=== PATIENT | female | born 1955 | race Caucasian/White ===

== ENCOUNTER 2023-12-29 06:13 | Inpatient (IN) | payer BC, MEDICARE, SELFPAY ==
[2023-12-24 09:22] VITALS: BMI 20.1
[2023-12-24 10:19] LABS: % Basophils 0.5 % (0-2); % Eosinophils 1.2 % (0-6); % Immature Granulocytes 0.2 % (0-0.5); % Lymphocytes 32.7 % (20.5-51.1); % Monocytes 6.5 % (1.7-9.3); % Neutrophils 58.9 % (42.2-75.2); Absolute Eosinophils 0.1 10^3/uL (0-0.7); Absolute Lymphocytes 1.9 10^3/uL (1.2-3.4); Absolute Monocytes 0.4 10^3/uL (0.1-0.6); Absolute Neutrophils 3.4 10^3/uL (1.4-6.5); Hematocrit 37.9 % (37.0-47.0); Hemoglobin 13.4 g/dL (12.0-16.0); Mean Corp Hgb Conc. 35.4 g/dL (33.0-37.0); Mean Corpuscular Hgb 31.8 pg (27.0-31.0); Mean Corpuscular Volume 89.8 fL (81.0-99.0); Mean Platelet Volume 10.2 fL (7.4-10.4); Nucleated Red Blood Cells % 0 %; Platelet Count 207 10^3/uL (130-400); Red Blood Cell Count 4.22 10^6/uL (4.20-5.40); Red Cell Dist. Width 13.2 % (11.5-14.5); White Blood Cell Count 5.7 10^3/uL (4.8-10.8)
[2023-12-24 10:29] LABS: PT 13.2 Sec (11.4-14.6)
[2023-12-24 10:45] LABS: Blood Urea Nitrogen 15 mg/dl (7-17); Calcium 9.6 mg/dl (8.4-10.2); Carbon Dioxide 27 mmol/L (22-30); Chloride 99 mmol/L (98-107); Estimated Creatinine Clearance 64 ml/min; Glucose 100 mg/dl (70-99); Potassium 3.5 mmol/L (3.5-5.1); Sodium 136 mmol/L (135-145); eGFR > 60.00
[2023-12-29] VITALS (9 sets, daily range): BP systolic 103–124; BP diastolic 59–75; BMI 20.5
[2023-12-29] MEDS: BACTROBAN NASAL 1 GRAM NASAL (06:54)
[2023-12-29] MEDS: PERIDEX 0.12% ORAL RINSE 15 ML PO (06:54)
[2023-12-29] MEDS: NSS 500 IV (06:54)
--- NOTE | 2023-12-29 07:05 | W.PV.INTER ---
VPI Note
Pre Admission Note
Functional Status: Full
Ambulation: Ambulate Independently
Pre Op Medications
Pre Op ASA: Yes
Pre Op Statin: Yes
Pre Op HEIDI Inhibitor/ARB: No
Pre Op P2y12 Antagonist: None
Pre Op Beta Blockers: No
Pre Op Chronic Anticoagulant: None
Pre Op Cilostazol: No
Post Op Medications
Post Op ASA: Yes
Post Op Statin: Yes
Post Op HEIDI Inhibitor/ARB: No
Post Op P2y12 Antagonist: None
Post Op Beta Blockers: No
Post Op Chronic Anticoagulant: None
Post Op Cilostazol: No
Modified Opal
Pre Op: 0
Post Op: 0
--- NOTE | 2023-12-29 07:10 | W.SUR.PREOP ---
Pre-Operative Surgical Note
-
I have examined this patient prior to the performance of the scheduled procedure.
The patient's condition is unchanged from the time of the current History and
Physical and the patient is able to undergo the scheduled procedure.
[2023-12-29 08:31] LABS: ACT-LR - POC 216 Seconds (116-155)
[2023-12-29 09:15] LABS: ACT-LR - POC 253 Seconds (116-155)
--- NOTE | 2023-12-29 10:12 | W.IMMPOSTOP ---
Surgical Immed Post Op Note
-
Primary Surgeon: Martin Jay III, MD
Assisting Surgeon: Alexander Brewer MD
Pre-op Diagnosis: L Carotid Artery Stenosis
Post-op Diagnosis: L Carotid Artery Stenosis s/p endarterectomy
Procedure Performed: L Carotid Endarterectomy with Bovine Patch Angioplasty
Anesthesia Type: General + Neuromonitoring
Specimen / Cultures: Atherosclerotic Plaque
Estimated Blood Loss: 50cc
Complications: NA
Operative Findings:
Patient's neck was prepped in usual fashion. Pre-operatively, ultrasound was used to identify the course of the common carotid artery and its bifurcation point. A 8cm incision was made along the anterior border of the sternocleidomastoid muscle.
Electrocautery was used to dissect through skin, subcutaneous tissue, and platysma muscle. Sharp dissection was used to carry incision down to level of carotid artery. Control of the common, external, internal carotids, and superior thyroid artery
was accomplished using vessel loops. 100u/kg heparin was administered and arteriotomy was performed extending from common carotid through the proximal internal carotid. The lumen was debrided of atherosclerotic plaque. A strip of bovine perciardial
patch was used as patch angioplasty to close the arteriotomy with a running 7-0 polypropylene suture. Loops were individually removed to check for backbleeding through the angioplasty site. Doppler ultrasound was used to confirm excellent flow
through the carotids. Protamine was administered, and gel-foam and thrombin were packed overlying the patch to promote hemostasis. Next, the overlying fascia, platysma, and skin were closed using running 2-0, 3-0, and 4-0 suture respectively. Skin
glue was placed for additional support. Upon awakening, patient was moving all extremities, following commands, and displayed no concern for vagal or hypoglossal nerve injury.
[2023-12-29 10:33] LABS: Hematocrit 29.6 % (37.0-47.0); Hemoglobin 10.2 g/dL (12.0-16.0); Mean Corp Hgb Conc. 34.5 g/dL (33.0-37.0); Mean Platelet Volume 10.1 fL (7.4-10.4); Platelet Count 141 10^3/uL (130-400); Red Blood Cell Count 3.29 10^6/uL (4.20-5.40); Red Cell Dist. Width 13.2 % (11.5-14.5); White Blood Cell Count 4.3 10^3/uL (4.8-10.8)
[2023-12-29 10:43] LABS: INR 1.22; PT 15.2 Sec (11.4-14.6)
[2023-12-29 10:44] LABS: APTT 27.7 Sec (23.4-35.0)
[2023-12-29 10:45] LABS: Blood Urea Nitrogen 10 mg/dl (7-17); Calcium 7.9 mg/dl (8.4-10.2); Carbon Dioxide 27 mmol/L (22-30); Chloride 109 mmol/L (98-107); Estimated Creatinine Clearance 75 ml/min; Glucose 116 mg/dl (70-99); Potassium 3.1 mmol/L (3.5-5.1); Sodium 139 mmol/L (135-145); eGFR > 60.00
[2023-12-29] MEDS: NSS 1000 IV ×2 (10:59→20:17)
[2023-12-29] MEDS: SUBLIMAZE 50 MCG IV (11:04)
--- NOTE | 2023-12-29 11:20 | CON.INTV ---
Consultation
Consultation Request
Date/Time Consultation Requested: 12/29
Date/Time Consultation Performed: 12/29
Reason for Consultation: critical care
Medical History
-
History of Present Illness:
History obtained from the patient, reviewing outpatient records. 68-year-old female with history of hypertension, breast cancer, significant smoking history quit 2004 with recent fall 3 weeks ago. She also has a history of mini strokes. She did
not seek medical attention at that time. She has had prior imaging which showed left carotid stenosis per MRI and Doppler. She does not see a neurologist. She is on aspirin therapy. Presently she is complaining of some left neck discomfort and
some mild shortness of breath. On further questioning she does get short of breath at baseline, describes orthopnea. She has to sleep with the head of the bed elevated. She has chronic colitis, follows GI. Denies any blood in urine or stool,
changes in weight, fevers. Review of systems otherwise negative. We are asked to help from critical care standpoint status post left carotid endarterectomy 12/29/2023
.
PMH: Hyperlipidemia, lymphocytic colitis on chronic steroid in the past, rhinitis, breast cancer 2012 right lumpectomy/radiation, suspected COPD
Past Medical History
Past Medical History: None (See above)
Past Surgical History: None (See above)
Social History
Tobacco: Former Smoker ([id number], quit 2004)
Alcohol: Occasional
Drug: None
Living: With Family (Daughter lives with patient)
Employment: Retired
Family History
Family History: Other (Sister from lung disease in fourth decade, details unclear. Mother from heart attack sixth decade.)
Allergies / Home Medications
Allergies
Allergy/AdvReac Type Severity Reaction Status Date / Time
No Known Allergies Allergy Verified 12/23/23 12:10
Home Medications
Medication Instructions Recorded Confirmed Last Taken Type
aspirin 81 mg tablet,delayed 81 mg PO DAILY 05/16/23 12/29/23 12/29/23 05:00 History
release
rosuvastatin 20 mg tablet 20 mg PO HS 05/16/23 12/29/23 12/28/23 22:00 History
budesonide 3 mg 3 mg PO DAILY 12/23/23 12/29/23 12/28/23 07:30 History
capsule,delayed,extended release
gabapentin 300 mg capsule 300 mg PO BID 12/23/23 12/29/23 12/28/23 22:00 History
sertraline 100 mg tablet 100 mg PO DAILY 12/23/23 12/29/23 12/28/23 22:00 History
Review of Systems
-
All other systems: Negative unless noted
Vitals / Labs / Diagnostic Testing
Vital Signs
Temp Pulse Resp BP Pulse Ox
98 F 58 11 110/59 95
12/29/23 11:00 12/29/23 11:15 12/29/23 11:15 12/29/23 10:45 12/29/23 10:45
Lab Data
12/29/23 10:15
12/29/23 10:15
Laboratory Results
12/29/23
10:15
PT 15.2 H
INR 1.22
APTT 27.7
Diagnostic Testing:
Physical Exam
-
HEENT: Normocephalic, Anicteric, Other (Left carotid incision intact) and Other (Left upper extremity A-line intact)
Cardiovascular: S1/S2, Regular Rhythm, Murmur (n), Rub (n), Peripheral Edema (n) and Calf Tenderness (n)
Respiratory: Wheeze (n), Rales (n), Rhonchi (n) and Non-Labored Respirations
GI: Soft, Non Distended and Tender (Mild, no rebound or guarding)
Neurology: Awake, Alert and No Motor Deficits (Moves all extremities)
Skin: Good Color and Other (No clubbing, cyanosis)
General: Comfortable (Conversant)
Assessment
-
68-year-old female with history of left carotid stenosis per imaging, breast cancer, hyperlipidemia, significant tobacco history, status post left carotid endarterectomy 12/29/2023
S/p LCEA 12/29/2023
Chronic dizziness
Fall November 2023, did not seek medical attention
Subjective dyspnea, chronic
Negative stress test
Leukopenia/anemia
Hypokalemia
Conditions present prior to admission
Hypertension/hyperlipidemia
History of multiple mini strokes
Per patient, none for 4 years
Lymphocytic colitis
On steroid therapy in the past, follows with GI
History of breast cancer right lumpectomy 2012
s/p XRT
GERD
Suspected COPD
Borderline restriction, isolated mild gas exchange defect
TLC 80%, DLCO 60%
Right upper lobe nodule, 5.5 mm, per CTA 02/18/23
Not commented on report
[id number] history of smoking, quit 2004
Family history of lung disease (sister in fourth decade, details unclear)
Plan/recommendations
At this time, patient appears to be comfortable
She does describe chronic shortness of breath at baseline, orthopnea which appears to be at baseline
She had a cardiology evaluation, stress echocardiogram in 2012 which was unremarkable
Chest x-ray suggest hyperinflation per my review
CT chest from 2022 reviewed by myself reveals no obvious emphysema. There is a right upper lobe nodule per my review, 5.5 mm, not commented on report
Moving forward
Continue with management per vascular surgery
Chest exam is clear, chest x-ray normal
Preoperative EKG unremarkable, await postoperative EKG
Potassium noted, replete
Follow blood pressures, A-line in place
Pressors as needed
Continue IV fluids postoperatively
DVT prophylaxis: Subcutaneous heparin
GI prophylaxis: Remains on Protonix
Patient with history of breast cancer and significant smoking history
Right upper lobe nodule per my review CT chest 2022 noted
Would recommend follow-up CT chest as outpatient
Would recommend pulmonary follow-up as outpatient
Information left in chart
Reviewed with critical care nursing
Will follow
TCCT 31 min
[2023-12-29 12:01] LABS: Magnesium 1.6 mg/dl (1.6-2.3)
[2023-12-29] MEDS: KCL 270 MEQ IV (12:01)
[2023-12-29] MEDS: ROXICODONE 5 MG PO ×2 (12:04→16:36)
--- NOTE | 2023-12-29 12:21 | PTCARENOTE ---
Received pt into Rm [id number] from PACU at 1115. Pt awake and answering questions appropriately at time of arrival. Lt Neck incision noted- surgical adhesive present, well approximated and w/o edema or ecchymosis noted. Ice pack in place to incision. Pt
Ox3, smile symmetrical, tongue midline, Melt Supervisor/leg strength +5 equally and bilaterally. IVF of NS at 80ml/hr infusing. Lt radial Keila present- leveled and zero-balanced, wave form WNL. Pt taking sips of water after passing swallow screen. Admission
questions completed. Physical assessment as documented. Orientation provided to pt re: surroundings/use of call perez. Plan of care discussed w/ pt and all questions answered. Comfort care provided. Dtr to bedside to visit w/ pt.
[2023-12-29] MEDS: MORPHINE SULFATE 2 MG IV ×2 (15:18→18:14)
--- NOTE | 2023-12-29 15:23 | OR.RPT ---
Operative Report
Operative Report
Date of Operation: 12/29/2023
Pre Op Diagnosis: High-grade calcified left carotid stenosis, asymptomatic
Post Op Diagnosis: High-grade calcified left carotid stenosis, asymptomatic
Procedure: LEFT carotid endarterectomy with patch angioplasty using bovine pericardium
Surgeon: Martin Jay III, MD
Secretary Of Police: Alexander Brewer MD PGY-1
Anesthesia: General
Complications: 20 cc
History and Indications for Procedure: 68-year-old female with asymptomatic high-grade stenosis involving the left carotid artery
Procedure in Detail: Emma Lemos was correctly identified and placed supine on the operating table. After adequate induction of anesthesia the left neck was positioned, prepped and draped in the usual sterile fashion. Preoperative antibiotics
were administered. A time out procedure was performed with the nursing and anesthesia staff confirming the patients identity as well as the nature and laterality of the procedure.
The carotid bifurcation was marked with ultrasound at the beginning of the case. The incision was planned accordingly. An incision was made along the anterior border of the left sternocleidomastoid muscle. Electrocautery was used to divide the
subcutaneous tissue and platysma. The carotid sheath was entered with sharp dissection. The internal jugular vein was retracted laterally. The vagus nerve was identified and protected throughout the case. The common carotid artery was identified at
the base of this incision and carefully encircled with a vessel loop. The patient was systemically heparinized. The dissection was continued distally towards the carotid bifurcation. The facial vein was skeletonized, ligated and divided between ties
and clips. The proximal external carotid artery was encircled with a vessel loop along with the superior thyroid artery branch. The distal internal carotid artery was encircled with a vessel loop at a soft spot on the artery beyond the plaque.
The internal vessel loop was secured followed by the common and external. An arteriotomy was made on the distal common carotid artery with an 11-blade. This was extended proximally and distally with Garzon scissors. The arteriotomy was extended
distally through the plaque to an area of normal appearing internal carotid artery. The distal vessel loop was replaced with a short tip hockey-stick type vascular clamp. An endarterectomy was performed with a Cantril elevator in the standard
fashion. The proximal extent of the plaque was transected with scissors. The distal end of the plaque in the internal carotid artery was feathered. There was a posterior intimal flap that was tacked down with 3 interrupted 7-0 Prolene sutures
evenly spaced along the posterior wall. The plaque extending into the external carotid artery was everted. Once the plaque was fully removed the endarterectomy plane was irrigated with heparinized saline and any loose fronds of tissue were removed.
A pre-cut piece of bovine pericardium was sewn in place using a running 6-0 Prolene suture. Prior to the completion of the patch the common carotid was allowed to forward bleed and the external was allowed to back bleed. The area under the patch was
irrigated with heparinized saline to remove any potential thrombus or debris. The anastomosis was completed.
The external vessel loop was released first, followed by the common and then the internal. There was an excellent pulse in the distal internal carotid artery. An excellent quality Doppler signal in the distal internal carotid artery was also
confirmed. The patch suture line was closely inspected for hemostasis and was achieved. Protamine was administered. Hemostasis was achieved in the wound bed. The wound was irrigated with saline solution.
The wound was then closed in layers. Sterile dressings were applied. The patient awoke from anesthesia with no immediate neuro deficits and was taken to the PACU in stable condition.
Attestation: I was present and responsible for the entire procedure
Signed:
Martin Jay III, MD
[facility]
[phone] (cell)
--- NOTE | 2023-12-29 16:00 | PTCARENOTE ---
Pt continues to rest quietly in bed, visiting w/ daughter. No neuro changes noted. Remains on RA w/ POx 96%. Voiding using bedpan. Tolerating PO- diet advanced. Ice pack q2hr and prn to Lt neck incision. Incision w/o change. Rx for reported neck
pain per MAR
[2023-12-29] MEDS: HEPARIN 5000 UNITS SC (16:36)
--- NOTE | 2023-12-29 18:40 | PTCARENOTE ---
Pt's brother visiting at bedside. Pt c/o Lt neck discomfort. MAP in low 90's. Medicated w/ Morphine per JAN. Will monitor MAP.
[2023-12-29] MEDS: CARDENE 200 IV (19:32)
--- NOTE | 2023-12-29 21:00 | PTCARENOTE ---
rec`d pt at 1900, resting in bed. talking with family. pt AAOx3. pupils 3mm. 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 neuro checks continued. SR on monitor. MAP touching low 100s at shift change. Cardene started to maintain map between 70-90. Left R a line. Room air,
diminished lung sounds. Pt uses bedpan. Left neck with SX site with sx adhesive. Pt uses ice pack for pain. safe environment maintained. call perez in reach.
[2023-12-29] MEDS: NEO-SYNEPHRINE 250 IV (21:13)
--- NOTE | 2023-12-29 21:37 | PTCARENOTE ---
cardene off for quite some time. Pt falling asleep, now abelardo started to maintain map 70-90. 2L NC started... sats dipping mid 80s as pt falls asleep.
[2023-12-30] VITALS (10 sets, daily range): BP systolic 99–142; BP diastolic 58–83; BMI 20.7; BMI 20.5
[2023-12-30] MEDS: HEPARIN 5000 UNITS SC ×2 (00:05→07:36)
--- NOTE | 2023-12-30 00:33 | PTCARENOTE ---
pt reassessed. no changes in pt assessment. abelardo titrated per protocol. pt used bedpan 2x...urinated.
[2023-12-30] MEDS: MORPHINE SULFATE 2 MG IV (00:50)
--- NOTE | 2023-12-30 04:00 | PTCARENOTE ---
pt reassessed. no changes in pt assessment.
--- NOTE | 2023-12-30 04:43 | DOWNTIME ---
There was a [employer] Downtime on 12/30/2023 from 0111 to 12/30/2023 at 0405. Downtime documentation of patient's care, including medication administrations, has been reconciled in the electronic record per guidelines. Refer to the
patient's paper chart under the miscellaneous tab to see printed paper medication records and downtime forms.
[2023-12-30 04:59] LABS: Hematocrit 30.4 % (37.0-47.0); Hemoglobin 10.5 g/dL (12.0-16.0); Mean Corp Hgb Conc. 34.5 g/dL (33.0-37.0); Mean Corpuscular Volume 92.7 fL (81.0-99.0); Mean Platelet Volume 10.7 fL (7.4-10.4); Platelet Count 173 10^3/uL (130-400); Red Blood Cell Count 3.28 10^6/uL (4.20-5.40); Red Cell Dist. Width 13.5 % (11.5-14.5); White Blood Cell Count 10.3 10^3/uL (4.8-10.8)
[2023-12-30 05:07] LABS: INR 1.19; PT 14.9 Sec (11.4-14.6)
[2023-12-30 05:08] LABS: APTT 29.4 Sec (23.4-35.0)
[2023-12-30 05:30] LABS: Blood Urea Nitrogen 8 mg/dl (7-17); Calcium 8.7 mg/dl (8.4-10.2); Carbon Dioxide 29 mmol/L (22-30); Chloride 104 mmol/L (98-107); Estimated Creatinine Clearance 76 ml/min; Glucose 115 mg/dl (70-99); Potassium 3.9 mmol/L (3.5-5.1); Sodium 139 mmol/L (135-145); eGFR > 60.00
[2023-12-30] MEDS: MAGNESIUM SULFATE 102 GRAMS IV (07:15)
[2023-12-30] MEDS: PROTONIX IV 40 MG IV (07:36)
[2023-12-30] MEDS: NSS (PRESERVATIVE FREE) 10 ML IV (07:36)
[2023-12-30] MEDS: ROXICODONE 5 MG PO (07:37)
--- NOTE | 2023-12-30 07:49 | W.PN.INTV ---
Today's Communication / Plan
Recommendations
Out of bed, ambulate
Possible discharge later today
Reviewed chronic pulmonary symptoms
Would benefit from pulmonary follow-up as outpatient. Information left in chart
Assessment
-
68-year-old female with history of left carotid stenosis per imaging, breast cancer, hyperlipidemia, significant tobacco history, status post left carotid endarterectomy 12/29/2023
S/p LCEA 12/29/2023
Chronic dizziness
FallNovember 2023, did not seek medical attention
Subjective dyspnea, chronic
Negative stress test
Leukopenia/anemia
Hypokalemia
Conditions present prior to admission
Hypertension/hyperlipidemia
History of multiple mini strokes
Per patient, none for 4 years
Lymphocytic colitis
On steroid therapy in the past, follows with GI
History of breast cancer right lumpectomy 2012
s/p XRT
GERD
Suspected COPD
Borderline restriction, isolated mild gas exchange defect
TLC 80%, DLCO 60%
Right upper lobe nodule, 5.5 mm, per CTA 02/18/23
Not commented on report
[id number]-[id number] history of smoking, quit 2004
Family history of lung disease (sister in fourth decade, details unclear)
Plan/recommendations
At this time, patient appears to be comfortable
Required Cardene and pressors overnight, currently off pressors
Neuroexam nonfocal
A-line has been discontinued
Mild incisional discomfort noted
Potassium improved
Moving forward
Continue with management per vascular surgery
Out of bed, ambulate
Aspirin, statin therapy
Possible discharge later today
Of note
She does describe chronic shortness of breath at baseline, orthopnea which appears to be at baseline
She had a cardiology evaluation, stress echocardiogram in 2012 which was unremarkable
Chest x-ray suggest hyperinflation per my review
CT chest from 2022 reviewed by myself reveals no obvious emphysema. There is a right upper lobe nodule per my review, 5.5 mm, not commented on report
Nocturnal hypoxia noted despite being on 2 L
Discussed possibility of underlying sleep disordered breathing. Patient describes many symptoms worrisome for sleep apnea
Recommend outpatient pulmonary follow-up
Patient with history of breast cancer and significant smoking history
Right upper lobe nodule per my review CT chest 2022 noted
Would recommend follow-up CT chest as outpatient
Would recommend pulmonary follow-up as outpatient
Information left in chart
Disposition efforts noted
Subjective Dataa
Subjective Data
Date of Service:
Date of Service: December 30, 2023
Subjective:
Patient currently sitting in the chair. Required intermittent Cardene and norepinephrine overnight for blood pressure issues. Complaining of left neck incision. Has chronic abdominal discomfort, denies nausea, chest pain. She has chronic
shortness of breath at baseline. Nocturnal desaturation noted
Objective Data
Data Reviewed
Vital Signs / I&O / Oxygen:
Vital Signs
Temp Pulse Resp BP Pulse Ox
97.7 F 49 15 109/83 99
12/30/23 07:02 12/30/23 05:30 12/30/23 05:30 12/30/23 04:00 12/30/23 05:30
Intake and Output
12/29/23 12/30/23 12/31/23
06:59 06:59 06:59
Intake Total 2190.5 / 2376.5 186 / 186
Output Total 1800 / 1800
Balance 390.5 / 576.5 186 / 186
SaO2 99
Nasal Cannula flow liters per 2
minute
Physical Exam
General: Comfortable and Other (Left neck incision intact)
HEENT: Normocephalic and Anicteric
Cardiovascular: S1-S2, Regular Rhythm, Murmur (n) and Rub (n)
Respiratory: Wheeze (n), Crackles (n), Rhonchi (n), Non-Labored Respirations and Other (Bronchial)
GI: Soft, Non Distended and Non Tender
Neurology: Awake, Alert and No Motor Deficits (Nonfocal neuroexam)
Skin: Good Color (n), Cyanosis (n) and Jaundice (n)
Labs/Micro/Reports
Lab Data
12/30/23 04:35
12/30/23 04:35
Laboratory Results
12/29/23 12/30/23
10:15 04:34
PT 15.2 H 14.9 H
INR 1.22 1.19
APTT 27.7 29.4
--- NOTE | 2023-12-30 07:58 | PTCARENOTE ---
Assumed care of pt at 0715 following shift report. Pt awake and resting quietly in bed. On RA w/ POx 96%. No SOB. Incision to Lt neck well approximated, surgical adhesive intact. No edema or ecchymosis noted. Pt using Ice pack prn for discomfort.
Neuro intact and unchanged my previous assessment findings. MAEW independently in bed. Neosynephrine gtt infusing at 20mcg/min at time assumed care of pt- turned off at 0730 as pt's MAPS in 80's. Will continue to monitor BP. Pt reports 06/18 neck
discomfort- medicated w/ Oxycodone as recorded in JAN. Call ana w/in pt reach and safe environment maintained.
--- NOTE | 2023-12-30 08:00 | W.PN.VS ---
Addendum entered and electronically signed by Martin Jay III, MD 12/30/23 13:40:
This patient was seen and examined with MARSHAL Meng. I agree with the history and physical exam as well as the assessment and plan.
Signed:
Martin Jay III, MD
[facility]
[phone] (tsba)
Original Note:
Today's Communication / Plan
-
Patient seen and examined at bedside with Dr. Martin Jay III, below plan reviewed with attending.
Assessment/Plan
-
Assessment: 68-year-old female POD #1 left carotid endarterectomy for carotid stenosis
Plan:
Discontinue arterial line
OOB with progression of ambulation as tolerated
Discontinue IV fluids
Continue aspirin and statin therapy
If patient continues to progress well and tolerates ambulation likely discharge later this afternoon
Subjective Data
-
Date of Service: December 30, 2023
Patient seen and examined at bedside, offers no complaints. Patient denies nausea, vomiting, fever, chills, or any neurological deficit. Reports adequate postoperative pain management.
Objective Data
-
Vital Signs
Temp Pulse Resp BP Pulse Ox
97.7 F 59 13 109/83 96
12/30/23 07:02 12/30/23 07:45 12/30/23 07:45 12/30/23 04:00 12/30/23 07:48
Intake and Output
12/29/23 12/30/23 12/31/23
06:59 06:59 06:59
Intake Total 2190.5 / 2376.5 186 / 186
Output Total 1800 / 1800
Balance 390.5 / 576.5 186 / 186
Intake:
Oral fluids 480 / 480
IV fluids (Total) 1710.5 / 1796.5 86 / 86
JEF 78 / 84 6 / 6
NSS 1620 / 1700 80 / 80
cardene 12.5 / 12.5
IV piggybacks 100 / 100
Output:
Urine, Voided 1800 / 1800
Other:
Number of approximated LARGE 1
amounts of urine
Lab Results
12/30/23 04:35
12/30/23 04:35
Calcium 8.7 mg/dl (8.4-10.2) 12/30/23 04:35
Magnesium 1.6 mg/dl (1.6-2.3) 12/29/23 10:15
Physical Exam
-
AAOx3, NAD
Tongue midline, face symmetrical, left neck incision CDI no evidence of hematoma or edema
No tachycardia
No dyspnea on room air
Moves bilateral upper extremities and lower extremities to command and spontaneously with equal strength
--- NOTE | 2023-12-30 08:55 | PTCARENOTE ---
Dr Jay in to see pt. Orders received. Lt radial Keila removed and pressure held at site until hemostasis achieved. Dressing applied to site. IVF stopped. Pt finishing eating her breakfast and then plans to get OOB.
[2023-12-30 09:34] LABS: Hepatitis C Antibody Negative (Negative)
--- NOTE | 2023-12-30 09:37 | PN.CDI ---
CDI
- -
CDI:
Physician Documentation Request
Admit Date: 12/29/23 06:13
Dear Adelina Hurt,
12/29 patient underwent L Carotid Endarterectomy with Bovine Patch Angioplasty.
H&H resulted as follows:
Laboratory Tests
12/24/23 12/29/23 12/30/23
09:54 10:15 04:35
Hgb 13.4 10.2 L D 10.5 L
Hct 37.9 29.6 L 30.4 L
Based on the above, could you provide a diagnosis that supports the above lab abnormalities and additional evaluation/ monitoring:
Acute blood loss anemia
Anemia- other - please specify
Abnormal lab values clinically insignificant
Other
Use of terms such as suspected, likely, concern for, or probable (associated with a specific diagnosis that is being evaluated, monitored, or treated as if it exists) are acceptable and can be coded in the inpatient setting, when documented at the
time of discharge.
Thank you,
Yanira Leung RN, BSN
CDI Specialist
tiger text
Please use your independent medical judgment in providing your response.
--- NOTE | 2023-12-30 10:45 | PTCARENOTE ---
Pt ambulated to BR w/ supervision- initial c/o 'feel a little dizzy' when first standing, improved w/ time. Pt's gait steady. AM Hygiene completed independently and then pt supervised to chair. Remains sitting OOB in chair, visiting with brother.
Using ice pack to Lt neck prn. Non changes noted from previous assessment findings or new complaints received.
[2023-12-30] MEDS: NEURONTIN 300 MG PO (11:33)
--- NOTE | 2023-12-30 12:24 | PTCARENOTE ---
Pt ambulated in queen w/ use of walker as safety precaution. Gait steady. Tolerated well - reports dizziness is 'better'.
--- NOTE | 2023-12-30 14:03 | CM ---
CM met with pt and her brother/Alex bedside
Pt resides with her dtr/Ondina in a 2SH with 2 SILAS/railing
Pt has 1st floor set up
Pt is independent with her ADLs
She has a SPC for use as needed
PCP- Martin Bedolla
Rx- [facility]
Pt does not anticipate any needs on dc
Discharge Disposition- home, no needs- brother will transport
[2023-12-30] MEDS: PREVNAR 20 0.5 ML IM (14:18)
--- NOTE | 2023-12-30 14:54 | PTCARENOTE ---
Pt has continued to rest quietly, visiting with brother. No new complaints or changes noted. Discharge order noted. IV access d/c'ed, sofa cover inspector removed. Discharge instructions reviewed w/ pt. Pt verbalized understanding and provided copy. Pt
in possession of personal belongings. Transported via WC to hospital exit for pt's brother to provide transportation home.
--- NOTE | 2023-12-30 16:04 | W.DS.TRANS ---
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
-
Discharge Instructions:
Discharge Diagnosis/Procedures Left carotid endarterectomy
Diet As tolerated
Activity No strenuous activity
Driving Restrictions Not until seen by your Dr
Bathing Restrictions OK to Shower
Instructions:
Stand-Alone Forms: DC Instr - Vascular OR
Changes to Home Medications: No
Discharge Medications:
DC Medications w/original date entered in [employer]
aspirin 81 mg tablet,delayed release 81 mg PO DAILY Blood Clot Prevention/Tx 05/16/23
rosuvastatin 20 mg tablet 20 mg PO HS High Cholesterol 05/16/23
budesonide 3 mg capsule,delayed,extended release 3 mg PO .TAPER Anti-Inflammatory 12/23/23
gabapentin 300 mg capsule 300 mg PO BID Pain 12/23/23
sertraline 100 mg tablet 100 mg PO DAILY Mental Health/Anxiety 12/23/23
Home Medication Changes
Pending Results: No
--- NOTE | 2023-12-30 16:04 | W.DCSUMMARY ---
Discharge Summary
Discharge Data
Date of Admission: 12/29/23
Date of Discharge: 12/30/23
-
Pending Results: No
Hospital Course
Attending: Misty
Consultants: Pulmonary medicine
Allergies: NKDA
Procedure with date: LEFT carotid endarterectomy with patch angioplasty using bovine pericardium on 12/29/2023
History of present illness: The patient is an 68 -year-old female with multiple medical conditions including: carotid stenosis, breast cancer, and COPD. Patient presented on 12/29/2023 for scheduled procedure with Dr. Jay. Patient presented at
baseline health with no reports of recent illness or trauma.
Hospital Course: Briefly, the patient underwent scheduled carotid endarterectomy without complications, and recovered in PACU. Following recovery phase one and two patient was transferred to intensive care unit per protocol for continued hemodynamic
monitoring. General Office Assistant consulted to aid in medical management from a critical care perspective. Patient did require Bebeto-Synephrine infusion to keep blood pressure within tight parameters postoperatively. POD #1 (12/30/23) Patient neurologically
intact, face symmetrical, and tolerating PO diet. Surgical incision clean, dry, and intact with suture line well approximated and soft. No evidence of hematoma. Bebeto-Synephrine infusion titrated off. Arterial line and IV fluids discontinued. Patient
able to ambulate without difficulty or incident. Patient stable for discharge to home.
Prescriptions and follow up appointment are included in the DC summary automated teller manager note. All instructions were given to the patient in both written and verbal form and the patient expressed understanding.
Discharge Plan
-
Patient Disposition: Home (Routine Discharge)
Discharge Diagnosis/Procedures: Left carotid endarterectomy
Condition: Good
Diet: As tolerated
Activity: No strenuous activity
Driving Restrictions: Not until seen by your Dr
Bathing Restrictions: OK to Shower
Activity Restrictions/Additional Instructions:
If you experience severe constant headache, weakness to an arm or leg, change in vision, trouble speaking or any stroke-like symptom, call 911 immediately
If you experience swelling, increased bruising, drainage from neck site, or fever, please call the office
Stand Alone Forms: DC Instr - Vascular OR
Referrals:
Americo Falk MD [Active] -
(Recommend pulmonary follow-up March 2024
PFT at that time
Would also recommend ION CT chest, this will be addressed at appt (pulmonary nodule noted per my review 2022))
Aurelia Grant PA-C [Specified Professional Personl] - 01/12/24 9:30 am (Vascular follow up)
Martin Bedolla DO [Family Provider] -
Prescriptions:
Continued
aspirin 81 mg Tablet,Delayed Release (Dr/Ec)
81 mg PO DAILY
rosuvastatin 20 mg Tablet
20 mg PO HS
sertraline 100 mg Tablet
100 mg PO DAILY
gabapentin 300 mg Capsule
300 mg PO BID
budesonide 3 mg Capsule,Delayed,Extend.Release
3 mg PO .TAPER
Discharge Orders:
Discharge Patient (As Directed); Ordered 12/30/23
Ordered By: Adelina Hurt
Discharge Date and Time
Discharge Date/Time: 12/30/23 15:01
--- NOTE | 2023-12-31 07:35 | W.PN.UPDATE ---
Update Note
Progress Note Update
In response to CDI:
12/29 patient underwent L Carotid Endarterectomy with Bovine Patch Angioplasty.
H&H resulted as follows:
Laboratory Tests
� 12/24/23 12/29/23 12/30/23
� 09:54 10:15 04:35
Hgb �13.4 �10.2 L D �10.5 L
Hct �37.9 �29.6 L �30.4 L
Based on the above, could you provide a diagnosis that supports the above lab abnormalities and additional evaluation/ monitoring:
Abnormal lab values clinically insignificant, likely a result of hemodilution following administration of IV fluids given EBL only 55 ml and postoperative hemoglobin remained stable
== END 2023-12-30 15:01 | disposition home or self-care (01) | DRG 39 ==
LOC: ICU 06:13
PROVIDERS: Nurse Practitioner Acute Care; ADMITTING PHYSICIAN Surgery Vascular Surgery; CONSULT PHYSICIAN Internal Medicine Critical Care Medicine; FAMILY PHYSICIAN Internal Medicine
PROC: 03UJ0KZ Supplement Left Common Carotid Artery with Nonautologous Tissue Substitute, Open Approach (ICD-10-PCS; 2023-12-29)
PROC: 03CN0ZZ Extirpation of Matter from Left External Carotid Artery, Open Approach (ICD-10-PCS; 2023-12-29)
PROC: 03CJ0ZZ Extirpation of Matter from Left Common Carotid Artery, Open Approach (ICD-10-PCS; 2023-12-29)
PROC: 03CL0ZZ Extirpation of Matter from Left Internal Carotid Artery, Open Approach (ICD-10-PCS; 2023-12-29)
DX: I65.22 Occlusion and stenosis of left carotid artery (principal); J44.9 Chronic obstructive pulmonary disease, unspecified; I10 Essential (primary) hypertension; Z86.73 Personal history of transient ischemic attack (TIA), and cerebral infarction without residual deficits; Z85.3 Personal history of malignant neoplasm of breast; Z87.891 Personal history of nicotine dependence
CPT/HCPCS: 35301; 36415; 71045; 71046; 80048; 83735; 85025; 85027; 85610; 85730; 86803; 86850; 86900; 86901; 87070; 90677; G0009

== ENCOUNTER 2024-01-06 17:31 | Inpatient (IN) | payer BC, MEDICARE, SELFPAY ==
[2024-01-06] VITALS (37 sets, daily range): BP systolic 79–180; BP diastolic 54–97; BMI 21.4; BMI 19.6
--- NOTE | 2024-01-06 10:29 | ED.GENMED ---
History of Present Illness
General
Chief Complaint: Post Operative Problem(s)
Time Seen by Provider: 01/06/24 10:29
Travel History
Have you had any contact with someone who has COVID-19?: No
Do you have any symptoms of coronavirus? Fever > 100 degrees, chills, cough, shortness of breath, sore throat, loss of taste or smell, muscle aches, or headache?: No
History of Present Illness
History of Present Illness:
HPI: Patient had headache with gradual onset and progression. About 24 hours ago. She has a general unwell feeling. She did take 500 mg of Tylenol about 3 and half hours ago with only minimal improvement of symptoms. She has associated
photophobia without significant nausea. She has pain when she chews food and pain in the left temporal region. She has had migraine type of headaches in the past.
EXAM:
GENERAL: The patient appears somewhat uncomfortable
HEENT: Moist oral mucosa
CARDIOVASCULAR: No murmurs, normal heart rate and rhythm, No chest wall tenderness
PULMONARY: No respiratory distress, breath sounds are clear and equal
ABDOMEN: Soft with no peritoneal signs, no tenderness
NEUROLOGIC: Excellent strength all extremities, no coordination deficits
PSYCHIATRIC: Appropriate mental status, normal insight and judgement
EXTREMITIES: Nontender, no edema, moves all extremities equally
SKIN: No rash, no lesions
ED COURSE:
10:30 AM: I initially evaluated patient
NUMBER AND COMPLEXITY OF PROBLEMS ADDRESSED AT THE ENCOUNTER
� Chronic conditions affecting care: Recent CEA, hyperlipidemia, former smoker
� Acute Exacerbation and/or Progression of Chronic Illness: This is an acute problem
� Differential Diagnosis includes: Postprocedural headache, acute migraine, temporal arteritis
AMOUNT AND/OR COMPLEXITY OF DATA TO BE REVIEWED AND ANALYZED
� I performed an independent evaluation of and my interpretation is:
EKG:
CT: CAT scan of the brain shows no acute abnormality
X-rays:
Laboratory Studies: CBC unremarkable, chemistries unremarkable except slightly high bicarb at 31, C-reactive protein is 6.9.
Other:
� Review of other/old records: I reviewed notes from [facility] by Dr. Martin Jay from 8 days ago.
� Clinical information was obtained by an independent historian: I spoke to daughter at bedside
� Prescriptions/Medications Considered but not given:
� Further testing considered but not performed:
RISK OF COMPLICATIONS AND/OR MORBIDITY OR MORTALITY OF PATIENT MANAGEMENT
� Social determinants of health affecting care: Lives at home
� Discussion with other providers: Vascular sent message to us earlier indicating that the patient is status post left carotid endarterectomy on 220 and now has left-sided headache/migraine associated with left-sided blurred
vision that started last night. I also spoke to Dr. Tom who recommends CTA imaging of the head neck and recommends admission to the hospital to medicine service to try to keep blood pressure under 160.
� Escalation of care including admission/observation vs risk of discharge considered: The patient appeared uncomfortable upon arrival. Will try Reglan (will only give low-dose as she is on SSRI) and Benadryl and fluids. Has
normal CRP. On reassessment around 2 PM, the patient's blood pressure has improved down to the 140s spontaneously.
Past History
Past History
ED Past Medical History: Other (IBS)
Social History
Tobacco: Non-smoker
Alcohol: None
Drug: None
Personal: Single
Phy Exam
Physical Exam
Physical Exam:
See HPI
Course
Orders/Labs/Results
Orders:
Orders
01/06/24 10:31
CT Head W/o Iv Contrast Urgent
Comment:
Reason For Exam: DAVISON, s/p L CEA, blurred vision
01/06/24 10:42
0.9% Sodium Chloride 500 ml [Nss] 500 ml IV BOLUS
Diphenhydramine [Benadryl] 25 mg IV NOW STA
Metoclopramide [Reglan] 5 mg IV NOW STA
01/06/24 11:06
Basic Metabolic Panel Urgent
CRP [C-Reactive Protein] Urgent
Complete Blood Count/With Diff Urgent
ESR [Erythrocyte Sed Rate] Urgent
01/06/24 12:17
CT Head & Neck Angio W/wo IV Urgent
Comment:
Reason For Exam: vision change / recent CEA - spoke to Negro
Abnormal Lab Results
01/06/24
11:06
RBC 4.00 L 10^6/uL
(4.20-5.40)
Hct 36.3 L %
(37.0-47.0)
MCH 31.5 H pg
(27.0-31.0)
Carbon Dioxide 31 H mmol/L
(22-30)
Glucose 102 H mg/dl
(70-99)
01/06/24 11:06
01/06/24 11:06
Vital Signs
Initial and Last Documented VS:
Initial Vital Signs
Temp Pulse Resp BP Pulse Ox
99.5 F 72 16 180/84 99
01/06/24 09:57 01/06/24 09:57 01/06/24 09:57 01/06/24 09:57 01/06/24 09:57
Last Documented Vital Signs
Temp Pulse Resp BP Pulse Ox
98.6 F 61 18 148/70 100
01/06/24 12:31 01/06/24 14:14 01/06/24 14:14 01/06/24 14:14 01/06/24 14:14
*Critical Care Note
Total Time (30-74mins, 75-104mins- exclusive of procedures): Not Applicable
ED Attending Note
-
Portions of this chart may have been created with voice recognition software.� Occasional wrong word or��sound alike� substitutions may have occurred due to the inherent limitations of voice recognition software.
Discharge Plan
Departure
Patient Disposition: Admit
Date of Disposition: 01/06/24
Time of Disposition: 15:03
Presentation/result/management discussed w/ accepting /DO: Hospitalist
Discharge Problem:
Headache
Prescriptions:
No Action
aspirin 81 mg Tablet,Delayed Release (Dr/Ec)
81 mg PO DAILY
rosuvastatin 20 mg Tablet
20 mg PO HS
sertraline 100 mg Tablet
100 mg PO DAILY
gabapentin 300 mg Capsule
300 mg PO BID
budesonide 3 mg Capsule,Delayed,Extend.Release
3 mg PO .TAPER
Referrals:
Martin Bedolla DO [Family Provider] -
Interventions
Interventions:
*Risk Screen - Suicide Last Done: 01/06/24 11:05
*General Assessment Last Done: 01/06/24 11:05
*Neglect/Abuse Screening Last Done: 01/06/24 11:05
*ED COVID-19 Vaccine History Last Done: 01/06/24 09:57
ED-Skin Assessment Last Done: 01/06/24 11:05
[2024-01-06] MEDS: NSS 500 IV (11:10)
[2024-01-06 11:13] LABS: % Basophils 0.8 % (0-2); % Eosinophils 0.8 % (0-6); % Immature Granulocytes 0.4 % (0-0.5); % Monocytes 8.2 % (1.7-9.3); % Neutrophils 53.8 % (42.2-75.2); Absolute Lymphocytes 1.8 10^3/uL (1.2-3.4); Absolute Monocytes 0.4 10^3/uL (0.1-0.6); Absolute Neutrophils 2.7 10^3/uL (1.4-6.5); Hematocrit 36.3 % (37.0-47.0); Hemoglobin 12.6 g/dL (12.0-16.0); Mean Corp Hgb Conc. 34.7 g/dL (33.0-37.0); Mean Corpuscular Hgb 31.5 pg (27.0-31.0); Mean Corpuscular Volume 90.8 fL (81.0-99.0); Mean Platelet Volume 9.5 fL (7.4-10.4); Nucleated Red Blood Cells % 0 %; Platelet Count 280 10^3/uL (130-400); Red Cell Dist. Width 13.2 % (11.5-14.5)
[2024-01-06] MEDS: BENADRYL 25 MG IV ×2 (11:14→22:40)
[2024-01-06] MEDS: REGLAN 5 MG IV (11:17)
[2024-01-06 11:36] LABS: Blood Urea Nitrogen 10 mg/dl (7-17); Calcium 9.8 mg/dl (8.4-10.2); Carbon Dioxide 31 mmol/L (22-30); Chloride 104 mmol/L (98-107); Glucose 102 mg/dl (70-99); Sodium 140 mmol/L (135-145); eGFR > 60.00
[2024-01-06 11:48] LABS: Erythrocyte Sed Rate 13 mm/hour (0-20)
--- NOTE | 2024-01-06 12:48 | W.PN.UPDATE ---
Addendum entered and electronically signed by Adán Tom MD 01/06/24 14:52:
CT angiogram of the head and neck reviewed. Widely patent left carotid endarterectomy site. No evidence of left carotid occlusive disease. Management as noted earlier.
Original Note:
Update Note
Progress Note Update
Seen and examined in emergency room. Briefly 68-year-old female known to our practice status post left carotid endarterectomy last week by Dr. Jay. Uneventful course. Patient was doing well at home. However, yesterday began relatively acute
onset of left-sided head and facial pain. Pain behind the eye and in the left anabaptist area. She notes blurred vision in her left eye as well. No loss of vision. No unilateral numbness or weakness, no speech dysarthria. Pain progressing and
therefore she presented here.
On exam/blood pressure 180/89; her left neck incision is clean dry intact, no hematoma. Neurologically no focal deficits, moves all extremities well. Tongue is midline.
Plan/ Concern for cerebral hypoperfusion status post left carotid endarterectomy. Hypertensive. CT scan of the head that was done demonstrates no evidence of bleed. Recommend urgent carotid imaging (CTA of the head and neck). Confirm patency of
carotid endarterectomy site. Secondly recommend admission to telemetry/ICU. Blood pressure tight control with ideal systolic blood pressure less than 140 mmHg. Discussed with patient as well as her daughter who is at the bedside.
--- NOTE | 2024-01-06 15:31 | CON.VAS ---
Consultation
Consultation Request
Date/Time Consultation Performed: 01/06/24 5312
Requesting Provider: ED physician
Performing Provider: Adán Tom MD
Reason for Consultation: Headache status post left carotid endarterectomy
Medical History
-
Chief Complaint: Headache
History of Present Illness:
This is a 68-year-old female known to our practice as she is status post left carotid endarterectomy last week by Dr. Jay. Uneventful course. Patient was doing well at home. However, yesterday began relatively acute onset of left-sided head and
facial pain. Pain behind the eye and in the left christianity area. She notes blurred vision in her left eye as well. No loss of vision. No unilateral numbness or weakness, no speech dysarthria. Pain progressing and therefore she presented here.
.
Past Medical History
Past Medical History: Cancer (Breast cancer), COPD, GERD and Other (Colitis, Right upper lobe nodule, 5.5 mm, per CTA 02/18/23)
Past Surgical History: Other (Left carotid endarterectomy 12/29/23, lumpectomy, tumor removal from left ear)
Social History
Tobacco: Former Smoker ([id number], quit 2004)
Alcohol: Occasional
Drug: None
Living: With Family
Allergies / Home Medications
Allergy/AdvReac Type Severity Reaction Status Date / Time
onion Allergy Tongue Verified 01/06/24 09:59
Swelling
Medication Instructions Recorded Confirmed Type
aspirin 81 mg tablet,delayed 81 mg PO DAILY Blood Clot 05/16/23 12/29/23 History
release Prevention/Tx
rosuvastatin 20 mg tablet 20 mg PO HS High Cholesterol 05/16/23 12/29/23 History
budesonide 3 mg 3 mg PO .TAPER Anti-Inflammatory 12/23/23 12/29/23 History
capsule,delayed,extended release
gabapentin 300 mg capsule 300 mg PO BID Pain 12/23/23 12/29/23 History
sertraline 100 mg tablet 100 mg PO DAILY Mental 12/23/23 12/29/23 History
Health/Anxiety
Review of Systems
-
History Source: Patient
All other systems: Negative unless noted
EENT: Reports Other (Headache onset 01/05/2024 with accompanying facial pain located behind the eye and in the left christianity area, notes left blurred vision but no loss of vision)
Physical Exam
Vital Signs
Temp Pulse Resp BP Pulse Ox
98.6 F 61 18 148/70 100
01/06/24 12:31 01/06/24 14:14 01/06/24 14:14 01/06/24 14:14 01/06/24 14:14
Lab Results
01/06/24 11:06
01/06/24 11:06
Physical Exam
General: No Apparent Distress and Comfortable
HEENT: Normocephalic, Anicteric, Atraumatic and Other (Tongue midline, left neck surgical incision CDI no evidence of hematoma or edema)
Respiratory: Non Labored Respirations
Cardiac: Negative JVD
GI: Soft, Non Tender and Non Distended
Musculoskeletal: No Edema
Skin: Warm
Neuro: AO x 3, No Motor Deficits and Nonfocal/Grossly Intact
Assessment / Plan
-
Assessment: Concern for cerebral hypoperfusion status post left carotid endarterectomy. Hypertensive.
Plan:
CT scan of the head that was done demonstrates no evidence of bleed. Recommend urgent carotid imaging (CTA of the head and neck). Confirm patency of carotid endarterectomy site.
Secondly recommend admission to telemetry/ICU. Blood pressure tight control with ideal systolic blood pressure less than 140 mmHg.
Discussed with patient as well as her daughter who is at the bedside
[2024-01-06] MEDS: APRESOLINE 5 MG IV (15:58)
[2024-01-06] MEDS: TORADOL 15 MG IV (16:00)
--- NOTE | 2024-01-06 17:05 | HPS.HSE ---
Addendum entered and electronically signed by Jos Abdi MD 01/06/24 17:33:
I saw and examined the patient.
The MAGAZINE KEEPER or PA's note was reviewed and I agree with the note.
Comment: 68-year-old female with a history of hypertension, recent cardiac neurectomy came to the hospital with worsening headache and high blood pressure. Hydralazine IV once given in the ED. Spoke with vascular surgery who wants patient to be
monitored in ICU on Cardene drip. Goal blood pressure less than 140. Once patient blood pressure stable can try oral nifedipine and goal would be to wean down the drip. ESR normal.
General: Comfortable and Conversant
HEENT: Anicteric,pink conjuctivae
Respiratory: Clear,no wheezing
Cardiac: S1/S2 and Regular Rhythm
GI: Soft and Non Tender
Musculoskeletal:No Edema
Skin: + left neck incision
Neuro: Awake, Alert, Oriented
Psych: Calm
Original Note:
Family Physician
-
Family Physician: Martin Bedolla
Chief Complaint
-
Headache and Blurry Vision
History of Present Illness
Patient is a 68 y/o F s/p left carotid endarterectomy on 12/29/23 with PMH of multiple TIAs and hyperlipidemia who presents c/o worsening headache and blurry vision. She says the pain is behind her left eye and left temporal area that started
yesterday and did not improve with Tylenol. She denies paresthesia, facial weakness, extremity weakness, and dysarthria. She admits to significantly blurry vision, some central vision loss, flashing lights, eyelid drooping, and clear liquid drainage
from the left eye. She reports headaches in the past but notes this is quite different than previous episodes.
Medical History
Past Medical History
Past Medical History: Reports Other
Additional Past Medical History:
Lymphocytic Colitis
Left Carotid Artery Stenosis s/p Left CEA
Hyperlipidemia
COPD
Generalized Anxiety Disorder
Breast CA s/p Lumpectomy
Past Surgical History: Reports Other
Additional Past Surgical History:
Left Carotid Endarterectomy
Lumpectomy
Social History
Tobacco: Former Smoker
Family History
Family History: Not pertinent
Allergies / Home Medications
Allergies reflects when Allergies were last updated in [email or web address].
Home Medications with original date entered in [email or web address]
Allergy/Medication List:
Allergies
Allergy/AdvReac Type Severity Reaction Status Date / Time
onion Allergy Tongue Verified 01/06/24 09:59
Swelling
Home Medications
aspirin 81 mg tablet,delayed release 81 mg PO DAILY Blood Clot Prevention/Tx 05/16/23
rosuvastatin 20 mg tablet 20 mg PO HS High Cholesterol 05/16/23
budesonide 3 mg capsule,delayed,extended release 3 mg PO .TAPER Anti-Inflammatory 12/23/23
gabapentin 300 mg capsule 300 mg PO BID Pain 12/23/23
sertraline 100 mg tablet 100 mg PO HS Mental Health/Anxiety 12/23/23
alprazolam 0.25 mg tablet 0.25 mg PO DAILY PRN anxiety 01/06/24
Review of Systems
-
A 12 point ROS was completed and negative except as noted: Yes
Constitutional: Denies Fever or Chills
Respiratory: Denies Cough or Trouble Breathing
Cardiac: Denies Chest Pain or Palpitations
Physical Exam
Vital Signs
Vital Signs
Temp Pulse Resp BP Pulse Ox
98.6 F 58 18 156/82 100
01/06/24 12:31 01/06/24 15:58 01/06/24 14:14 01/06/24 15:58 01/06/24 14:14
Physical Exam
General: Comfortable and Conversant
HEENT: Anicteric, Moist mucous membranes and Other
Respiratory: Clear and Non Labored Respirations
Cardiac: S1/S2 and Regular Rhythm
GI: Soft and Non Tender
Rectal: Deferred by Provider
Musculoskeletal: No Clubbing, No Cyanosis and No Edema
Skin: Warm, Dry and Other (Left neck incision is clean dry and intact)
Neuro: Awake, Alert, Oriented, No Motor Deficits and Other (No temporal artery tenderness. )
Psych: Calm
Laboratory Results
-
01/06/24 11:06
01/06/24 11:06
Data Reviewed
-
CT Scan: Report Reviewed by me
Lab Data: Labs Reviewed by me
Impression/Plan
-
Hypertensive Urgency with Severe Left Headache with Visual Disturbance following Recent Left CEA
-Appreciate Vascular Consult
-Monitor in ICU on nicardipine drip
-Plan to start oral meds when MAGAZINE KEEPER has improved
Recurrent TIAs
-Continue aspirin
Hyperlipidemia
-Continue rosuvastatin
Lymphocytic Colitis
-Continue budesonide taper as prior to admission
Generalized Anxiety Disorder
-Continue Sertraline
-Continue alprazolam prn
DVT proph: SCDs
Code Status: Full Code
[2024-01-06] MEDS: CARDENE 200 IV (17:37)
--- NOTE | 2024-01-06 19:20 | PTCARENOTE ---
Received pt from ED nurse. Pt able to slide to ICU bed during tsx (self). Pt on cardene gtt infusing at 2.5mg/hr. Pt is A&Ox3, c/o DAVISON 5 out of 10 pain, and can move all [address] on tele monitor, no edema, and +pedal pulses. Pt on RA
satting at 95% pulse ox. On auscultation lungs sound clear. Pt's abdomen is round, soft, non tender, and has +BS. Pt's left neck surgical site has no drainage and is SHANELL. VSS.
[2024-01-06 19:26] LABS: Magnesium 2.1 mg/dl (1.6-2.3)
[2024-01-06] MEDS: NEURONTIN 300 MG PO (19:53)
[2024-01-06] MEDS: CRESTOR 20 MG PO (21:43)
[2024-01-06] MEDS: ZOLOFT 100 MG PO (21:43)
[2024-01-06] MEDS: TORADOL 30 MG IV (22:38)
[2024-01-06] MEDS: REGLAN 10 MG IV (22:42)
--- NOTE | 2024-01-06 23:00 | PTCARENOTE ---
Cardene gtt turned off per protocol.
[2024-01-07] VITALS (46 sets, daily range): BP systolic 72–173; BP diastolic 43–98; BMI 19.6
[2024-01-07 00:15] LABS: INR 0.99; PT 13.1 Sec (11.4-14.6)
[2024-01-07] MEDS: NSS 500 IV (00:22)
--- NOTE | 2024-01-07 01:30 | W.PN.UPDATE ---
Update Note
Progress Note Update
0115- Patient off nicardipine gtt, received 500cc bolus for hypotension sbp 80s sustained. Patient feeling better after headache IV medication: toradol 30mg, benadryl 25mg, and reglan 10mg IV. Updated Dr. Tom, recommendations received: maintain SBP
<140, slight hypotension ok if patient is asymptomatic. Headache patient rates 5/10 and is resting comfortably, describes headache pain as dull aching pressure at this time.
--- NOTE | 2024-01-07 02:00 | PTCARENOTE ---
500 mL NSS bolus administered by this RN for hypotension.
[2024-01-07 05:34] LABS: Hematocrit 36.1 % (37.0-47.0); Hemoglobin 12.6 g/dL (12.0-16.0); Mean Corp Hgb Conc. 34.9 g/dL (33.0-37.0); Mean Corpuscular Hgb 31.6 pg (27.0-31.0); Mean Corpuscular Volume 90.5 fL (81.0-99.0); Mean Platelet Volume 9.6 fL (7.4-10.4); Platelet Count 288 10^3/uL (130-400); Red Blood Cell Count 3.99 10^6/uL (4.20-5.40); Red Cell Dist. Width 13.4 % (11.5-14.5); White Blood Cell Count 5.5 10^3/uL (4.8-10.8)
[2024-01-07 05:59] LABS: Blood Urea Nitrogen 11 mg/dl (7-17); Calcium 9.1 mg/dl (8.4-10.2); Carbon Dioxide 29 mmol/L (22-30); Chloride 105 mmol/L (98-107); Estimated Creatinine Clearance 73 ml/min; Glucose 100 mg/dl (70-99); Magnesium 2.2 mg/dl (1.6-2.3); Potassium 3.9 mmol/L (3.5-5.1); Sodium 139 mmol/L (135-145); eGFR > 60.00
[2024-01-07 06:30] LABS: TSH Reflex To Free T4 2.66 uIU/ml (0.47-4.68)
[2024-01-07] MEDS: ASPIR LOW (ENTERIC COATED) 81 MG PO (07:15)
[2024-01-07] MEDS: TYLENOL 650 MG PO ×2 (07:16→21:18)
[2024-01-07] MEDS: ENTOCORT EC 6 MG PO (07:16)
[2024-01-07] MEDS: NEURONTIN 300 MG PO ×2 (07:16→21:18)
--- NOTE | 2024-01-07 08:08 | PTCARENOTE ---
pt aaox3. states 8/10 headache left temporal area with eye pain and light sensitivity. tylenol given as ordered. bp within ordered range as documented. room air breath sounds clear. facial symmetry noted and no slurring of words. left neck inc
site closed c/d/i. reviewed pt condition and plan of care for the day.
--- NOTE | 2024-01-07 08:28 | CON.INTV ---
Consultation
Consultation Request
Date/Time Consultation Requested: 01/06/2024 - 184
Date/Time Consultation Performed: 01/07/2024 - 821
Requesting Provider: Nadege Mathews PA-C
Performing Provider: Dr. Guillory
Reason for Consultation: Hypertensive crisis on cardene gtt
Medical History
-
Chief Complaint: Headache
History of Present Illness:
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 She also endorses slightly blurred
vision. Patient afebrile in the ER to 98.6 �F, pulse rate 58, RR: 18, BP 156/82, and saturating 100% on room air. Head CT was performed which showed no acute intracranial abnormality. Given the patient's recent CEA, a CTA head/neck was performed
showing widely patent left carotid endarterectomy with a partially calcified right carotid bifurcation with <30% stenosis, as well as a partially calcified right ICA at the cavernous and supraclinoid sections with <30% stenosis. Labs were
significant for glucose 102. Patient was given 1/2 L NS 0.9%, as well as a migraine cocktail with Toradol 15 mg, Reglan 5 mg and Benadryl 25 mg. Also given hydralazine 5 mg. Due to concern for patient's blood pressure rising back into the SBP
160s, a Cardene drip was started and patient transferred to the ICU for further care. Critical care services consulted for additional management/recommendations.
When I saw the pt she was in bed in NAD. She still has left sided frontal headache with left eye pain. Blurry vision is in left eye only. BP is 145/79 and HR is 83. She is on room air saturating 97%. RR: 19. She denies recent injury to eye,
foreign body to left eye, chest pain, SOB, abd pain, nausea, vomiting, diarrhea, f/c.
PMHx: History of breast cancer, reported history of COPD, GERD, history of colitis, lung nodule, former tobacco smoker, arthritis, impaired vision (wears glasses), history of anxiety
PSHx: Left carotid endarterectomy (12/29/2023), lumpectomy, left ear tumor removal
Past Medical History
Past Medical History: Other (Above as per HPI)
Past Surgical History: Other (Above as per HPI)
Social History
Tobacco: Former Smoker (14-ujdr-skbi history, quit in 2004)
Alcohol: Occasional
Drug: Marijuana
Living: With Family
Family History
Family History: Reviewed & Not Pertinent
Allergies / Home Medications
Allergies
Allergy/AdvReac Type Severity Reaction Status Date / Time
onion Allergy Tongue Verified 01/06/24 09:59
Swelling
Home Medications
Medication Instructions Recorded Confirmed Last Taken Type
aspirin 81 mg tablet,delayed 81 mg PO DAILY Blood Clot 05/16/23 01/06/24 01/06/24 History
release Prevention/Tx
rosuvastatin 20 mg tablet 20 mg PO HS High Cholesterol 05/16/23 01/06/24 01/05/24 History
budesonide 3 mg 3 mg PO .TAPER Anti-Inflammatory 12/23/23 01/06/24 01/06/24 History
capsule,delayed,extended release 6 mg
gabapentin 300 mg capsule 300 mg PO BID Pain 12/23/23 01/06/24 01/06/24 History
sertraline 100 mg tablet 100 mg PO HS Mental Health/Anxiety 12/23/23 01/06/24 01/05/24 History
alprazolam 0.25 mg tablet 0.25 mg PO DAILY PRN anxiety 01/06/24 01/06/24 Unknown History
Review of Systems
-
History Source: Patient
All other systems: Negative unless noted (12 point ROS performed and is negative unless mentioned above.)
Vitals / Labs / Diagnostic Testing
Vital Signs
Temp Pulse Resp BP Pulse Ox
98.1 F 64 14 156/82 96
01/07/24 07:39 01/07/24 09:15 01/07/24 09:15 01/07/24 09:00 01/07/24 09:15
Lab Data
01/07/24 05:13
01/07/24 05:13
Laboratory Results
01/06/24
23:00
PT 13.1
INR 0.99
APTT 21.0 L
Diagnostic Testing:
Physical Exam
-
HEENT: Normocephalic and Anicteric
Cardiovascular: S1/S2 and Peripheral Edema (negative)
Respiratory: Clear, Wheeze (n), Rales (n) and Rhonchi (n)
GI: Soft, Non Distended and Non Tender
Neurology: Awake, Alert and Other (Normal H-test; pt endorses normal peripheral vision)
Skin: Warm and Dry
General: Comfortable
Assessment
-
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 She also endorses slightly
blurred vision. Patient afebrile in the ER to 98.6 �F, pulse rate 58, RR: 18, BP 156/82, and saturating 100% on room air. Head CT was performed which showed no acute intracranial abnormality. Given the patient's recent CEA, a CTA head/neck was
performed showing widely patent left carotid endarterectomy with a partially calcified right carotid bifurcation with <30% stenosis, as well as a partially calcified right ICA at the cavernous and supraclinoid sections with <30% stenosis. Labs were
significant for glucose 102. Patient was given 1/2 L NS 0.9%, as well as a migraine cocktail with Toradol 15 mg, Reglan 5 mg and Benadryl 25 mg. Also given hydralazine 5 mg. Due to concern for patient's blood pressure rising back into the SBP
160s, a Cardene drip was started and patient transferred to the ICU for further care. Critical care services consulted for additional management/recommendations.
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
Impression:
#Hypertensive crisis requiring cardene gtt
#Headache - improved with migraine cocktail
#Left eye pain with blurry vision
#Reported Hx of COPD
#Lymphocytic colitis on PO budesonide
#Anxiety
Plan:
- Lower SBP by 25% in first 24 hrs --> goal SBP today is 130-150mmHg then can reduce to goal <140/90mmHg
- Wean off cardene gtt and start PO anti-hypertensive --> start lisinopril 5mg today
- neuro consulted - recs appreciated --> MRI brain pending
- patient may need to see ophthalmology if her eye pain does not improve and MRI brain is negative
- Pain control
- Maintain MAP>65
- Replete K>3.5, Mg>1.8
- Maintain euglycemia with goal BG 140�180
- DVT ppx - LMWH
Critical care time: 38 minutes; my critical care time does not overlap with another physician's critical care time.
Data:
CTA Head + Neck 01-06-2024:
There is left carotid endarterectomy in the left carotid bifurcation is widely patent
There is small volume partially calcific atherosclerotic plaque at the right carotid bifurcation associated with less than 30% stenosis
There is small volume partially calcific atherosclerotic plaque at the cavernous and supraclinoid right internal carotid artery associated less than 30% stenosis
CT head 01-06-2024: Normal
CT Head 01-07-2024:
1. No acute intracranial abnormalities appreciated.
2. No significant change compared to prior study.
CXR 01-06-2024: No acute cardiopulmonary process.
--- NOTE | 2024-01-07 08:52 | W.PN.VS ---
Addendum entered and electronically signed by Adán Tom MD 01/07/24 11:09:
Seen and examined with HYDRAULIC PRESS IN OPERATOR. Agree with findings as noted below. Patient symptoms unchanged. Exam unchanged. No focal deficits. Left neck incision clean dry and intact. Moves all extremities well. Plan/as discussed and noted below.
Original Note:
Today's Communication / Plan
-
Patient seen and examined at bedside with Dr. Adán Tom, below plan reviewed with attending
Assessment/Plan
-
Assessment: 68-year-old female status post left carotid endarterectomy, concern for cerebral hypoperfusion with continued headache
Plan:
Consult neurology for continued headache
Will repeat noncontrast head CT given patient continues to report headache pain that is unchanged from admission
Continue tight blood pressure control, ideally systolic blood pressure in range of 120-130
Subjective Data
-
Date of Service: January 07, 2024
Patient seen and examined at bedside, reports continued left-sided headache with pain behind the eye, patient endorses 8 out of 10 on pain scale. Denies nausea, vomiting, fever, and chills. Denies unilateral weakness, aphasia, dysphasia, and
vision loss. Does endorse continued intermittent blurred vision at left eye.
Objective Data
-
Vital Signs
Temp Pulse Resp BP Pulse Ox
98.1 F 60 16 134/89 97
01/07/24 07:39 01/07/24 08:00 01/07/24 08:00 01/07/24 08:00 01/07/24 08:00
Lab Results
01/07/24 05:13
01/07/24 05:13
Calcium 9.1 mg/dl (8.4-10.2) 01/07/24 05:13
Magnesium 2.2 mg/dl (1.6-2.3) 01/07/24 05:13
Physical Exam
-
AAOx3
Left neck surgical incision CDI, no evidence hematoma, intact Dermabond
No tachycardia
No dyspnea on room air
ABD flat
Bilateral upper extremities and lower extremities with equal strength
[2024-01-07] MEDS: REGLAN 10 MG IV (09:15)
[2024-01-07] MEDS: MAXALT MLT (ORALLY DISINTEGRATING) 10 MG PO ×2 (09:15→16:34)
[2024-01-07] MEDS: CARDENE 200 IV (09:15)
--- NOTE | 2024-01-07 09:24 | PTCARENOTE ---
pt bp 156/82, Cardene gtt restarted. pt states headache 08/18. pain medication given as ordered by neurology.
--- NOTE | 2024-01-07 11:29 | CM ---
CM following re: discharge planning.
Reviewed pt's chart, met with pt and pt's brother Alex at bedside.
Pt is a 68 year old female, admitted with primary dx of Headache and Blurry Vision
Pt was sleeping during interview. per brother Alex, pt lives with daughter Ondina in a 2SH, 2 steps to enter, pt stays on the first floor. 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
PCP: Martin Bedolla
Pharmacy: [facility]
D/C plan: home with anticipated no needs. Family to transport at discharge.
CM will follow with discharge plan updates as hospitalization progresses
--- NOTE | 2024-01-07 11:55 | W.PN.HOSP.TC ---
Today's Communication/Plan
-
Monitor vital signs see plan
Monitor blood pressure closely
MRI pending
Assessment / Plan
Assessment / Plan
General: Comfortable and Conversant
HEENT: Anicteric,pink conjuctivae
Respiratory: Clear,no wheezing
Cardiac: S1/S2 and Regular Rhythm
GI: Soft and Non Tender
Musculoskeletal:No Edema
Skin: + left neck incision
Neuro: Awake, Alert, Oriented
Psych: Calm
Hypertensive crisis with Severe Left Headache with Visual Disturbance following Recent Left CEA
-vascular following
in ICU on cardene gtt
still with headache; neurology consulted; Awaiting MRI, triptan given by neurology
agree with lowering BP slowly. started lisinopril; wean down cardene
CTA left carotid endarterectomy in the left carotid bifurcation is widely patent
if symptoms donw improve then should see opthamology
Recurrent TIAs
-Continue aspirin
Hyperlipidemia
-Continue� rosuvastatin
Lymphocytic Colitis
-Continue budesonide taper as prior to admission
Generalized Anxiety Disorder
-Continue Sertraline
-Continue alprazolam prn
DVT ppx lovenox
Code Status: Full Code
Anticipated Discharge: Within 24 hours
Subjective/Interval History
-
Date of Service: January 07, 2024
still has headache
Objective Data
-
Labs:
Laboratory Results
01/06/24 01/07/24
23:00 05:13
WBC 5.5
Hgb 12.6
Hct 36.1 L
Plt Count 288
PT 13.1
INR 0.99
APTT 21.0 L
Sodium 139
Potassium 3.9
Chloride 105
Carbon Dioxide 29
BUN 11
Creatinine 0.6
Glucose 100 H
Calcium 9.1
Vital Signs:
Vital Signs
Temp Pulse Resp BP Pulse Ox
97.9 F 88 18 145/79 96
01/07/24 11:41 01/07/24 11:15 01/07/24 11:15 01/07/24 11:00 01/07/24 11:15
--- NOTE | 2024-01-07 12:35 | CON.NEURO4 ---
Consultation - Neurology 4
-
CONSULTING PHYSICIAN: Sammi Munroe
REFERRING PHYSICIAN: Hospitalist
DICTATED BY: Sammi Munroe
DATE/TIME OF REQUEST: 01/07/24
DATE/TIME OF CONSULTATION: 01/07/24
Reason for Consultation: Left eye vision blurring, left temporal headache
History of Present Illness:
Patient is a 68-year-old woman with a past medical history of breast cancer, migraine with aura, former smoking tobacco history, recent left carotid endarterectomy on 12/29 who presented to hospital with severe left temporal headache pain along with
left eye blurred vision beginning on Thursday in the morning.
Patient reports that she had done well after her carotid endarterectomy of the left carotid artery on 12/29 and did not have any obvious illnesses or traumatic head or neck injuries on Thursday of this week. In the morning of Thursday she noted
significant left temporal area pain as well as blurred vision isolated to the left eye only. She does report some pain with extraocular movements on the left eye. She denies any trauma or foreign body or injuries to the left eye. She does wear
glasses at baseline but otherwise has no chronic ocular conditions no history of eye surgeries. She did state that she had some wetness of the left eye but did not seem to have any purulence or blood or outward redness of the eye. Some had
wondered whether or not she had some left eye drooping. No problems with the right eye. She denies any photophobia. Her vision changes described as a blurring does not describe color change or any diplopia.
Patient did describe photophobia and nausea last night to ED physician, currently not having these.
She has not had any jaw claudication or temporal area pain no unusual myalgias recently and no unusual headaches prior to this more recent headache.
She was admitted to ICU and placed on nicardipine infusion for blood pressure control.
Patient does describe a history of rare migraine headaches happening only a few times a year and was more common in her younger years. She would have visual aura with these migraines preceding the significant headache. Her current headache does
not feel like a typical migraine and she did not have any typical visual aura.
Past Medical History: Left carotid endarterectomy, migraine with aura, COPD, colitis, arthritis, breast cancer
Surgical History: Left carotid endarterectomy, breast lumpectomy, left ear tumor removal
Family History: Reviewed and non-contributory
Social History: Lives with family, former smoker 20-30 pack years quitting around 2004, social alcohol 2-3 drinks a week
Allergies: No known drug allergies
Review of Symptoms:
Patient denies any fever, headache, chest pain, shortness of breath, GI or symptoms.
Physical Exam:
Middle-aged woman appears her stated age, no signs of overt distress appears comfortable seated in bed, left carotid endarterectomy scar is clean dry and intact no neck masses seen. Left eye shows no ptosis or edema or erythema in the area of the
eyeball or surrounding tissues. No hyphema or hypopyon seen. No conjunctival injection seen. Oropharynx is clear, no temporal area tenderness, neck full range of motion with no neck masses. Heart rate regular breathing unlabored abdomen soft
nontender no lower extremity edema.
Neurologic Examination:
The patient is awake, alert and oriented x 3. She is able to follow commands and answer questions appropriately. There is no aphasia or dysarthria. On cranial nerve assessment, pupils are 3 mm bilateral, round and reactive to light and
accommodation. Visual rodriguez are full. Vision 20/40 in left eye to near card testing, right eye 20/20. No APD seen. Extraocular movements are intact. Facial sensations are intact and bilaterally symmetrical, there is no facial asymmetry. Hearing
is intact bilaterally to normal conversation volume. Tongue palate and uvula are midline. Sternocleidomastoid strengths are full bilaterally. Motor strengths are 5/5 bilateral upper and lower extremities on medical research Clark scale. There is
no drift or involuntary movement noted. Deep tendon reflexes are 2+ bilateral upper and lower extremities and Babinski is absent bilaterally. Sensations of pain, touch, temperature and vibration are intact and bilaterally symmetrical. There was no
extinction noted on double simultaneous stimulation. Coordination is intact by finger to nose bilaterally.
Neuro Imaging: CTA head and neck with patent left carotid after endarterectomy, no dissection or thrombus seen, no intracranial aneurysms or stenosis seen.
Impressions
Left eye vision blurring along with left temporal headache in the several days after uncomplicated left carotid endarterectomy. Outwardly the eye appears normal, patient does have some decrease in visual acuity on the left eye but no evidence of an
afferent pupillary defect. She has some pain with extra ocular movements:/
Ddx includes: Migraine given her previous history of migraines, beginnings of a hyperperfusion syndrome following carotid endarterectomy, glaucoma. Doubtful an optic neuritis or orbital cellulitis. Her ESR is negative and patient had negative
review of symptoms for me for giant cell arteritis making this unlikely. CTA has ruled out intracranial aneurysm or cervical artery dissection.
Recommendations:
1. Give one dose 10 mg Rizatriptan and 10 mg IV Metoclopramide
2. Agree with blood pressure control
3. Check MRI of the brain and orbit with and without contrast
Will follow
Discussed patient care with: Patient
[2024-01-07] MEDS: ZESTRIL 5 MG PO (12:51)
--- NOTE | 2024-01-07 15:24 | PTCARENOTE ---
pt taken to mri and returned. states headache is now an 06/18.
[2024-01-07] MEDS: LOVENOX 40 MG SC (16:34)
--- NOTE | 2024-01-07 20:00 | PTCARENOTE ---
Received report from eugenie RN, assumed care of patient at 1900. Nursing assessment as documented, Ox3, on RA lungs CTA, SR on monitor rates 70-90's, +PP, continent of bowel and bladder. Stand by assist to bathroom, patient admitted to
lightheadedness upon standing. Patient remains off cardene gtt, SBP 130's. Admits to DAVISON in left temporal and frontal regions 5/10 - improved from prior per patient and L orbital pain/pressure rated 7/10. Medicated with PRN Tylenol as per order, see
MAR. Medications given without difficulty. s/p L CEA site approximated with surgical glue remains CDI. Call perez within reach, VSS, care ongoing.
[2024-01-07] MEDS: ZOLOFT 100 MG PO (21:18)
[2024-01-07] MEDS: CRESTOR 20 MG PO (21:18)
[2024-01-08] VITALS (21 sets, daily range): BP systolic 75–174; BP diastolic 42–101; BMI 19.4
--- NOTE | 2024-01-08 | PTCARENOTE ---
No changes to physical assessment. Blood pressures 120-130's. Patient walked to bathroom with PCT. Call perez within reach, care ongoing.
--- NOTE | 2024-01-08 04:00 | PTCARENOTE ---
No changes to physical assessment. Patient reported DAVISON and L orbit pressure improved, denied need for medication at this time. BP 100-120's. Labs drawn and sent. Call perez within reach, care ongoing.
[2024-01-08 04:55] LABS: Hematocrit 34.5 % (37.0-47.0); Mean Corp Hgb Conc. 34.8 g/dL (33.0-37.0); Mean Corpuscular Hgb 31.5 pg (27.0-31.0); Mean Corpuscular Volume 90.6 fL (81.0-99.0); Mean Platelet Volume 9.4 fL (7.4-10.4); Platelet Count 279 10^3/uL (130-400); Red Blood Cell Count 3.81 10^6/uL (4.20-5.40); Red Cell Dist. Width 13.5 % (11.5-14.5); White Blood Cell Count 6.5 10^3/uL (4.8-10.8)
[2024-01-08 05:21] LABS: Blood Urea Nitrogen 14 mg/dl (7-17); Carbon Dioxide 28 mmol/L (22-30); Chloride 104 mmol/L (98-107); Estimated Creatinine Clearance 62 ml/min; Glucose 103 mg/dl (70-99); Potassium 3.9 mmol/L (3.5-5.1); Sodium 139 mmol/L (135-145); eGFR > 60.00
--- NOTE | 2024-01-08 07:40 | W.PN.INTV ---
Addendum entered and electronically signed by Christopher Guillory MD 01/08/24 19:28:
Of note, patient already has a follow-up appointment to see Dr. Falk with us in the [facility] office on 02/08/2024. Patient should keep that appointment. Any questions please have her contact our office.
Original Note:
Today's Communication / Plan
Recommendations
BP control
Pain control
Eventual ophthalmology follow up
Patient stable for downgrade out of ICU to telemetry. Quality Assurance Tester/pulmonary service will now sign off. Please reconsult if there are any additional questions/concerns, or if respiratory status deteriorates.
Assessment
-
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
blurred vision. Patient afebrile in the ER to 98.6 �F, pulse rate 58, RR: 18, BP 156/82, and saturating 100% on room air. Head CT was performed which showed no acute intracranial abnormality. Given the patient's recent CEA, a CTA head/neck was
performed showing widely patent left carotid endarterectomy with a partially calcified right carotid bifurcation with <30% stenosis, as well as a partially calcified right ICA at the cavernous and supraclinoid sections with <30% stenosis. Labs were
significant for glucose 102. Patient was given 1/2 L NS 0.9%, as well as a migraine cocktail with Toradol 15 mg, Reglan 5 mg and Benadryl 25 mg. Also given hydralazine 5 mg. Due to concern for patient's blood pressure rising back into the SBP
160s, a Cardene drip was started and patient transferred to the ICU for further care. Critical care services consulted for additional management/recommendations.
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
Impression:
#Hypertensive crisis requiring cardene gtt - cardene gtt now off and crisis resolved
#Headache - improved with migraine cocktail
#Left eye pain with blurry vision - doubtful to be GCA given she has no vision loss, CRP is normal and no abnormalities seen on CTA head/neck imaging study from 01/06/2024
#Reported Hx of COPD
#Lymphocytic colitis on PO budesonide
#Anxiety
Plan:
- Goal <140/90mmHg
- Continue lisinopril but raise dose to 10mg daily (from 5mg) and continue prn hydralazine
- neuro consulted - recs appreciated --> MRI brain pending
- patient may need to see ophthalmology if her eye pain does not improve
- Pain control
- Maintain MAP>65
- Replete K>3.5, Mg>1.8
- Maintain euglycemia with goal BG 140�180
- continue prn xanax
- DVT ppx - LMWH
Dispo: TRX out of ICU to telemetry. Quality Assurance Tester/pulmonary service will now sign off. Thank you for allowing me to be involved in the care of this patient. Please reconsult if there are any additional questions/concerns, or if respiratory status
deteriorates.
Data:
CTA Head + Neck 01-06-2024:
There is left carotid endarterectomy in the left carotid bifurcation is widely patent
There is small volume partially calcific atherosclerotic plaque at the right carotid bifurcation associated with less than 30% stenosis
There is small volume partially calcific atherosclerotic plaque at the cavernous and supraclinoid right internal carotid artery associated less than 30% stenosis
CT head 01-06-2024: Normal
CT Head 01-07-2024:
1. No acute intracranial abnormalities appreciated.
2. No significant change compared to prior study.
CXR 01-06-2024: No acute cardiopulmonary process.
Brain MRI 01-07-2024:
There is no acute intracranial process.
No mass or mass effect. No abnormal enhancement imaging.
There are a few tiny foci of increased T2 signal intensity in the deep white matter similar to the prior exam. No significant interval change.
Orbit/Face/Neck MRI 01-07-2024:
Orbit MRI with and without IV contrast is unremarkable.
No focal area of abnormal enhancement, there is no enlargement of the optic nerves or mass or mass effect.
Subjective Dataa
Subjective Data
Date of Service:
Date of Service: January 08, 2024
Chief Complaint: Quality Assurance Tester Follow Up
Subjective:
Seen this AM. Off Cardene since yesterday afternoon. Still having pain in her left eye but it is improved; also endorses tenderness at her left judaism.. BP 122/84 this AM. Her headache is gone.
Review of Systems
General: Other (Negative unless mentioned above)
Objective Data
Data Reviewed
Vital Signs / I&O / Oxygen:
Vital Signs
Temp Pulse Resp BP Pulse Ox
97.9 F 72 13 155/95 98
01/08/24 08:00 01/08/24 09:16 01/08/24 08:00 01/08/24 09:16 01/08/24 08:00
Intake and Output
01/07/24 01/08/24 01/09/24
06:59 06:59 06:59
Intake Total 800 / 800 360 / 360
Balance 800 / 800 360 / 360
SaO2 98
Physical Exam
General: Comfortable
HEENT: Normocephalic, Anicteric and Other (slight pain at left judaism, but no bulging of her left temporal artery seen)
Cardiovascular: S1-S2 and Peripheral Edema (negative)
Respiratory: Clear, Wheeze (negative), Crackles (negative) and Rhonchi (negative)
GI: Soft, Non Distended, Non Tender and Normal Bowel Sounds
Neurology: AO x 3
Skin: Warm and Dry
Labs/Micro/Reports
Lab Data
01/08/24 04:34
01/08/24 04:34
[2024-01-08] MEDS: ASPIR LOW (ENTERIC COATED) 81 MG PO (07:52)
[2024-01-08] MEDS: ENTOCORT EC 3 MG PO (07:52)
[2024-01-08] MEDS: NEURONTIN 300 MG PO ×2 (07:52→20:44)
--- NOTE | 2024-01-08 08:20 | W.PN.VS ---
Addendum entered and electronically signed by Martin Jay III, MD 01/08/24 12:19:
This patient was seen and examined with MARSHAL Meng. I agree with the history and physical exam as well as the assessment and plan.
Signed:
Martin Jay III, MD
[facility]
[phone] ([phone])
Original Note:
Today's Communication / Plan
-
Patient seen and examined at bedside with Dr. Martin Jay III, below plan reviewed with attending
Assessment/Plan
-
Assessment: 68-year-old female status post left carotid endarterectomy, concern for cerebral hypoperfusion with continued headache
Plan:
Appreciate neurology input, patient with near resolution of headache
Appreciate hospitalist input and management of BP
Patient can follow-up in the outpatient setting as previously scheduled
Subjective Data
-
Date of Service: January 08, 2024
Patient seen and examined at bedside, no acute events overnight. Patient offers no complaints. Reports most near resolution to headache and very minimal left eye pain. Currently reports left eye pain 3/10 on pain scale. Denies nausea, fever,
chills, and vomiting. Tolerating p.o. diet.
Objective Data
-
Vital Signs
Temp Pulse Resp BP Pulse Ox
98.0 F 58 18 94/55 94
01/08/24 03:58 01/08/24 06:00 01/08/24 06:00 01/08/24 06:00 01/08/24 04:00
Intake and Output
01/07/24 01/08/24 01/09/24
06:59 06:59 06:59
Intake Total 800 / 800
Balance 800 / 800
Intake:
Oral fluids 800 / 800
Other:
Number of approximated MODERATE 1
amounts of urine
Lab Results
01/08/24 04:34
01/08/24 04:34
Calcium 9.0 mg/dl (8.4-10.2) 01/08/24 04:34
Magnesium 2.2 mg/dl (1.6-2.3) 01/07/24 05:13
Physical Exam
-
AAOx3
Left neck surgical incision CDI, no evidence hematoma, intact Dermabond
No tachycardia
No dyspnea on room air
ABD flat
Bilateral upper extremities and lower extremities with equal strength
--- NOTE | 2024-01-08 08:28 | W.PN.NEURO.1 ---
Today's Communication / Plan
-
-No further workup or monitoring needed from my perspective
-Recommend prescription for 10 mg rizatriptan as needed for migraine, can repeat once after 2 hours and limit to only 2 days of the week
-Provided information for the neurology office she can follow-up nonurgently in the next 1 to 3-months
-Continue aspirin
-No changes to her home gabapentin
No barriers to discharge from my standpoint neurology will sign off call with questions and concerns
Neuro Assessment/Plan
Assessment
Patient is a 68-year-old woman with past medical history of migraine with aura who had recent uncomplicated left carotid endarterectomy who presented to hospital with severe left temporal headache along with tearing of the left eye and left eye
vision change.
CTA of the head and neck did not show any dissection or abnormality in the left carotid after endarterectomy no intracranial occlusion or vascular malformation
MRI of the brain and orbit with no abnormalities in the left eye or optic nerve
ESR negative and negative review of systems for giant cell/temporal arteritis
Patient describes a clear history of migraine with visual aura which is episodic holocephalic headache accompanied by photophobia, knocking sound, nausea and vomiting
Patient also describes separate distinct episodes from her typical migraines characterized by left temporal pain, blurred vision in the left eye along with drooping of the left eye and possibly left facial drooping. She had seen neurologist in the
past years ago for this and her understanding was that these were mini strokes she was placed on gabapentin for this. Patient reports that these episodes last several hours and do not conform to a pattern of short lasting episodes of repeated
stereotyped pain but rather a long-lasting episode that we will put her down for the day. These had occurred at least more than 5 times in her life but has not occurred in some time now.
-These are most likely atypical migraine with autonomic features, they are definitely not TIA or stroke given stereotyped repeated nature with complete resolution
Her presenting episode in the past couple of days sounds very similar to the above previous episodes.
Most likely patient had an atypical migraine with autonomic features. Her time pattern does not fit cluster headache or paroxysmal hemicrania or SUNCT/FINA.
Subjective/Objective
Subjective Data
Date of Service: January 08, 2024
No acute events overnight, feeling much better with headache pretty much resolved, still a little blurred vision in left eye alone but vision improved from yesterday.
Objective Data
Vital Signs
Temp Pulse Resp BP Pulse Ox
98.0 F 58 18 94/55 94
01/08/24 03:58 01/08/24 06:00 01/08/24 06:00 01/08/24 06:00 01/08/24 04:00
Lab Results
01/08/24 04:34
01/08/24 04:34
PT 13.1 Sec (11.4-14.6) 01/06/24 23:00
INR 0.99 01/06/24 23:00
APTT 21.0 Sec (23.4-35.0) L 01/06/24 23:00
Sodium 139 mmol/L (135-145) 01/08/24 04:34
Potassium 3.9 mmol/L (3.5-5.1) 01/08/24 04:34
BUN 14 mg/dl (7-17) 01/08/24 04:34
Glucose 103 mg/dl (70-99) H 01/08/24 04:34
Calcium 9.0 mg/dl (8.4-10.2) 01/08/24 04:34
Patient Allergies
onion Allergy (Verified 01/06/24 09:59)
Tongue Swelling
Review of Systems
-
History Source: Patient
All other systems: Reviewed and negative
Constitutional: No Symptoms
EENT: Tearing and Decreased Vision
Respiratory: No Symptoms
Cardiac: No Symptoms
Abdomen/GI: No Symptoms
Genitourinary: No Symptoms
Musculoskeletal: No Symptoms
Skin: No Symptoms
Neuro: Headache
Endocrine: No Symptoms
Hematologic / Lymphatic: No Symptoms
Allergy / Immunology: No Symptoms
Physical Exam
-
General: Comfortable
Eyes: No Ptosis
HEENT: Normocephalic
Neck: No Bruits Bilaterally
Respiratory: Clear to Auscultation
Cardiac: Regular Rhythm
GI: Normal Bowel Sounds
Skin: Unremarkable
Extremities: No Clubbing
Psych: Unremarkable
Extended Neurological Exam
Mood & Affect: Mood Unremarkable and Affect Unremarkable
Attention Span & Concentration: Awake, Alert and Interactive
Memory: Unremarkable
Tremor: Hand Tremor Absent
Involuntary Movement: None
Speech: Quality Unremarkable and Quantity Unremarkable; Negative Expressive Aphasia or Receptive Aphasia
Cranial Nerve II: Left Eye: Pupillary Reactivity Unremarkable, Pupillary Size Unremarkable, Visual Stanley Intact and Other (Left eye 20/20 near card)
Cranial Nerve II: Right Eye: Pupillary Reactivity Unremarkable, Pupillary Size Unremarkable, Visual Stanley Intact and Other (right eye 20/20 near card)
Cranial Nerves III, IV, : Extraocular Movement: Extraocular Movement Full in all Directions
Cranial Nerve VII: Facial Symmetry: Normal Facial Symmetry
Muscle Strength, Overall: Full Throughout
Muscle Bulk & Tone: Bulk Unremarkable
Pronator Drift: No Drift in Upper Extremities
Vibration Sensation: Unremarkable
Touch Sensation: Unremarkable
Coordination: [id number]-[id number] Testing Unremarkable
Data Reviewed
-
CT-A: Report Reviewed and Image Reviewed
CT Head: Report Reviewed and Image Reviewed
MRI Head: Report Reviewed and Image Reviewed
[2024-01-08] MEDS: ZESTRIL 5 MG PO ×2 (09:16→14:34)
[2024-01-08 11:15] LABS: Glycohemoglobin (HgbA1c) 5.9 % (4.0-5.6)
--- NOTE | 2024-01-08 12:26 | W.PN.HOSP.TC ---
Today's Communication/Plan
-
monitor vitals
see plan
check BP now; if elevated then increase lisinopril to 10mg
dc planning
Assessment / Plan
Assessment / Plan
General: Comfortable and Conversant
HEENT: Anicteric,pink conjuctivae
Respiratory: Clear,no wheezing
Cardiac: S1/S2 and Regular Rhythm
GI: Soft and Non Tender
Musculoskeletal:No Edema
Skin: + left neck incision
Neuro: Awake, Alert, Oriented
Psych: Calm
Hypertensive crisis with Severe Left Headache with Visual Disturbance following Recent Left CEA
-vascular following
s/p cardene gtt
suspect headache is likely migraine
MRI without acute modality
Neurology recommended rizatriptan as needed for migraine, can repeat once after 2 hours limit only 2 days of the week
agree with lowering BP; started lisinopril; can increase to 10mg
CTA left carotid endarterectomy in the left carotid bifurcation is widely patent
if symptoms dont improve then should see ophthalmology outpatient
Recurrent TIAs
-Continue aspirin
Hyperlipidemia
-Continue� rosuvastatin
Lymphocytic Colitis
-Continue budesonide taper as prior to admission
Generalized Anxiety Disorder
-Continue Sertraline
-Continue alprazolam prn
DVT ppx lovenox
Code Status: Full Code
Anticipated Discharge: Within 24 hours
Subjective/Interval History
-
Date of Service: January 08, 2024
denies nausea
Objective Data
-
Labs:
Laboratory Results
01/08/24
04:34
WBC 6.5
Hgb 12.0
Hct 34.5 L
Plt Count 279
Sodium 139
Potassium 3.9
Chloride 104
Carbon Dioxide 28
BUN 14
Creatinine 0.7
Glucose 103 H
Calcium 9.0
Vital Signs:
Vital Signs
Temp Pulse Resp BP Pulse Ox
98.1 F 72 13 155/95 98
01/08/24 11:19 01/08/24 09:16 01/08/24 08:00 01/08/24 09:16 01/08/24 08:00
I&O
01/07/24 01/08/24 01/09/24
06:59 06:59 06:59
Intake Total 800 / 800 360 / 360
Balance 800 / 800 360 / 360
--- NOTE | 2024-01-08 13:58 | CM ---
CM following re: discharge planning.
Reviewed pt's chart, met with pt.
Pt is treating for hypertensive crisis with Severe Left Headache with Visual Disturbance following Recent Left CEA
Pt lives with daughter Ondina in a 2SH, 2 steps to enter, pt stays on the first floor. Per brother, pt is independent in all areas [employer], has a cane and uses it as needed.
PT and OT evaluations pending.
D/C plan: home with anticipated no needs. Family to transport at discharge.
CM will follow with discharge plan updates as hospitalization progresses
[2024-01-08 14:55] LABS: Erythrocyte Sed Rate 7 mm/hour (0-20)
[2024-01-08] MEDS: APRESOLINE 5 MG IV (16:09)
--- NOTE | 2024-01-08 16:22 | PTCARENOTE ---
Patient received in AM with assessment as noted. Continues alert, oriented and pleasant. C/O slight left eye pain rated 3/10. Denies headache. OOB to chair and bathroom since 1000 and ambulates without assist. NSR at rest. Tachycardic when
ambulating or standing for a prolonged time. Max HR while standing to wash was 140's but returned to baseline within 2-3 minutes when seated without other intervention. aware. Slightly more hypertensive by 1300, aware and an
additional Lisinopril 5 mg PO given. PRN Hydralazine 5 mg IV given at 1610 for B/P 174/89. Afebrile. Lungs CTA. Sao2 97% on room air. Appetite good. Had a large soft formed brown bowel movement today. Voiding ad gurmeet. For transfer to 2128 and
report called to Pedro on . For transfer via W/C with chart and belongings.
[2024-01-08] MEDS: LOVENOX 40 MG SC (17:08)
--- NOTE | 2024-01-08 17:17 | PTCARENOTE ---
Pt received as transfer from ICU. AAOx3. Continues with blurred vision in L eye. 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 Assessment documented. VSS. Pt without complaint at this time.
[2024-01-08] MEDS: ZOLOFT 100 MG PO (21:28)
[2024-01-08] MEDS: CRESTOR 20 MG PO (21:28)
[2024-01-08] MEDS: COMPAZINE 5 MG IV (21:30)
[2024-01-09 03:18] VITALS: BP 81/45
[2024-01-09 07:15] VITALS: BP 82/51
[2024-01-09] MEDS: ASPIR LOW (ENTERIC COATED) 81 MG PO (08:42)
[2024-01-09] MEDS: ENTOCORT EC 3 MG PO (08:42)
[2024-01-09] MEDS: NEURONTIN 300 MG PO (08:42)
[2024-01-09 08:52] VITALS: BP 90/60
--- NOTE | 2024-01-09 08:52 | PTCARENOTE ---
Per Dr. Abdi, AM lisinopril held for bp of 82/51. Manual BP obtained per MD, with reading of 90/60. Dr. Abdi notified.
[2024-01-09 09:54] LABS: Erythrocyte Sed Rate 8 mm/hour (0-20)
[2024-01-09] MEDS: MAXALT MLT (ORALLY DISINTEGRATING) 10 MG PO (10:49)
[2024-01-09 11:10] VITALS: BP 113/51
--- NOTE | 2024-01-09 11:10 | W.PN.HOSP.TC ---
Addendum entered and electronically signed by Jos Abdi MD 01/09/24 14:38:
Spoke with patient again. Her headache is now better. She received rizatriptan this morning. Will prescribe her rizatriptan for home as recommended by neurology. I also spoke with ophthalmology who recommended patient to call their office on
Thursday for appointment. Given patient low blood pressure at times, recommended patient to check her blood pressure twice daily at home and to start lisinopril once blood pressure greater than 140/90
Time of discharge 36 minutes
Original Note:
Today's Communication/Plan
-
Monitor vital signs and see plan
triptan
monitor BP
possible dc later today if feeling better
Assessment / Plan
Assessment / Plan
General: Comfortable and Conversant
HEENT: Anicteric,pink conjuctivae
Respiratory: Clear,no wheezing
Cardiac: S1/S2 and Regular Rhythm
GI: Soft and Non Tender
Musculoskeletal:No Edema
Skin: + left neck incision
Neuro: Awake, Alert, Oriented
Psych: Calm
Hypertensive crisis with Severe Left Headache with Visual Disturbance following Recent Left CEA
-vascular following
s/p cardene gtt
suspect headache is likely migraine
MRI without acute modality
Neurology recommended rizatriptan as needed for migraine, can repeat once after 2 hours limit only 2 days of the week
agree with lowering BP; patient reacts very strongly with blood pressure medication. Blood pressure overnight and this morning run low again. will do lisinopril 5mg. I advised patient to check her blood pressure twice daily at home and keep a log
and follow-up with primary care provider.
Headache again today, ordered rizatriptan
CTA left carotid endarterectomy in the left carotid bifurcation is widely patent
if symptoms dont improve then should see ophthalmology outpatient
Recurrent TIAs
-Continue aspirin
Hyperlipidemia
-Continue� rosuvastatin
Lymphocytic Colitis
-Continue budesonide taper as prior to admission
Generalized Anxiety Disorder
-Continue Sertraline
-Continue alprazolam prn
DVT ppx lovenox
Code Status: Full Code
Anticipated Discharge: Today
Subjective/Interval History
-
Date of Service: January 09, 2024
has headache today
Objective Data
-
Vital Signs:
Vital Signs
Temp Pulse Resp BP Pulse Ox
98.4 F 70 16 90/60 97
01/09/24 07:15 01/09/24 07:15 01/09/24 07:15 01/09/24 08:52 01/09/24 07:15
I&O
01/08/24 01/09/24 01/10/24
06:59 06:59 06:59
Intake Total 800 / 800 1080 / 1080
Balance 800 / 800 1080 / 1080
--- NOTE | 2024-01-09 14:37 | W.DCSUMMARY ---
Discharge Summary
Discharge Data
Date of Admission: 01/06/24
Date of Discharge: 01/09/24
-
Pending Results: No
Hospital Course
68-year-old female with past medical history of migraine, recent left carotid enterectomy, recurrent TIA, hyperlipidemia, lymphoma Citic colitis, generalized anxiety disorder, hypertension came to the hospital with headache and hypertensive crisis.
Patient was seen by vascular surgery throughout hospitalization. Initially patient was admitted to ICU for Cardene drip. Later on patient was able to be weaned off Cardene drip and was placed on lisinopril. Patient hospital course was complicated
with persistent left-sided headache. ESR was checked which was normal. Patient was seen by neurology who thought patient symptoms were likely related to migraine. Her headache improved after triptan. MRI was also done which did not show any
acute abnormality given patient left-sided pain with some involvement with eye discomfort, she was also instructed to follow-up with ophthalmology outpatient. While patient was on lisinopril her blood pressure significantly dropped at times. Given
these findings patient instructed to restart lisinopril when her blood pressure is greater than 140/90. On the day of discharge, since her headache improved she was then discharged home with instructions to follow-up with all her other physicians
outpatient.
Discharge Plan
-
Patient Disposition: Home (Routine Discharge)
Discharge Diagnosis/Procedures: Hypertensive crisis
Recent left carotid enterectomy
Suspect migraine
Diet: As tolerated
Activity: As tolerated
Driving Restrictions: As prior to admission
Bathing Restrictions: None
Activity Restrictions/Additional Instructions:
call ophthalmology office Thursday
[phone]
[facility]hthal[facility]
Check your blood pressure twice daily and start lisinopril 5 mg daily once blood pressure greater than 140/90
Referrals:
Alex Munroe MD [Active] -
Aurelia Grant PA-C [Specified Professional Personl] - 01/12/24 9:30 am
Anel Durán MD [Active] - in one to two days
Martin Bedolla DO [Family Provider] - in less than 1 week
Prescriptions:
New
lisinopril 5 mg Tablet
5 mg PO DAILY Qty: 30 0RF
rizatriptan 10 mg tablet,disintegrating
10 mg PO DIRECTED PRN (Reason: migraine headache) Qty: 10 0RF
Rx Instructions:
can repeat once after 2 hours and limit to only 2 days of the week
Continued
aspirin 81 mg Tablet,Delayed Release (Dr/Ec)
81 mg PO DAILY
rosuvastatin 20 mg Tablet
20 mg PO HS
sertraline 100 mg Tablet
100 mg PO HS
gabapentin 300 mg Capsule
300 mg PO BID
budesonide 3 mg Capsule,Delayed,Extend.Release
3 mg PO .TAPER
Patient Comments:
01/06/2024: took 2 caps today, 2 caps tomorrow, Thursday starts 1 cap daily for 2 weeks
alprazolam 0.25 mg tablet
0.25 mg PO DAILY PRN (Reason: anxiety)
Patient Comments:
01/06/2024: last filled 01/01/24, 30 tabs for 30 days from [id number]
Discharge Orders:
Discharge Patient (As Directed); Ordered 01/09/24
Ordered By: Jos Abdi
Discharge Date and Time
Discharge Date/Time: 01/09/24 15:52
--- NOTE | 2024-01-09 14:59 | CM ---
CM reviewed chart and noted dc order
Bedside meeting with pt and family
No dc needs noted
IMM verbally reviewed- copy provided
Discharge Disposition- home, no needs
== END 2024-01-09 15:52 | disposition home or self-care (01) | DRG 305 ==
LOC: 2 NORTH 17:31
PROVIDERS: Nurse Practitioner; Physician Assistant Medical; ADMITTING PHYSICIAN Internal Medicine; CONSULT PHYSICIAN Internal Medicine Critical Care Medicine; CONSULT PHYSICIAN Student in an Organized Health Care Education/Training Program; CONSULT PHYSICIAN Surgery Vascular Surgery; EMERGENCY PHYSICIAN Emergency Medicine; FAMILY PHYSICIAN Internal Medicine
DX: I16.9 Hypertensive crisis, unspecified (principal); G43.109 Migraine with aura, not intractable, without status migrainosus; E78.00 Pure hypercholesterolemia, unspecified; J44.9 Chronic obstructive pulmonary disease, unspecified; K21.9 Gastro-esophageal reflux disease without esophagitis; I10 Essential (primary) hypertension; F41.1 Generalized anxiety disorder; H57.12 Ocular pain, left eye; M19.90 Unspecified osteoarthritis, unspecified site; K52.832 Lymphocytic colitis; R91.1 Solitary pulmonary nodule; Z87.891 Personal history of nicotine dependence; Z79.82 Long term (current) use of aspirin; Z85.3 Personal history of malignant neoplasm of breast; Z86.73 Personal history of transient ischemic attack (TIA), and cerebral infarction without residual deficits
CPT/HCPCS: 70450; 70496; 70498; 70543; 70553; 71045; 80048; 83036; 83735; 84443; 85025; 85027; 85610; 85652; 85730; 86140; 93005; 96361; 96365; 96375; 99285; A9575; Q9967

== ENCOUNTER → 2024-01-19 12:45 | Outpatient (REF) | payer BC, SELFPAY ==
[2024-01-19 13:43] LABS: % Basophils 0.6 % (0-2); % Eosinophils 0.6 % (0-6); % Immature Granulocytes 0.4 % (0-0.5); % Lymphocytes 35.2 % (20.5-51.1); % Monocytes 8.4 % (1.7-9.3); % Neutrophils 54.8 % (42.2-75.2); Absolute Lymphocytes 1.8 10^3/uL (1.2-3.4); Absolute Monocytes 0.4 10^3/uL (0.1-0.6); Absolute Neutrophils 2.8 10^3/uL (1.4-6.5); Hematocrit 31.8 % (37.0-47.0); Hemoglobin 11.7 g/dL (12.0-16.0); Mean Corp Hgb Conc. 36.8 g/dL (33.0-37.0); Mean Corpuscular Hgb 31.7 pg (27.0-31.0); Mean Corpuscular Volume 86.2 fL (81.0-99.0); Mean Platelet Volume 9.9 fL (7.4-10.4); Nucleated Red Blood Cells % 0 %; Platelet Count 224 10^3/uL (130-400); Red Blood Cell Count 3.69 10^6/uL (4.20-5.40); Red Cell Dist. Width 13.1 % (11.5-14.5); White Blood Cell Count 5.1 10^3/uL (4.8-10.8)
[2024-01-19 14:26] LABS: ALT (SGPT) 22 U/L (0-35); AST (SGOT) 29 U/L (14-36); Albumin 4.5 g/dl (3.5-5.0); Alkaline Phosphatase 78 U/L (38-126); Blood Urea Nitrogen 13 mg/dl (7-17); Calcium 9.1 mg/dl (8.4-10.2); Carbon Dioxide 28 mmol/L (22-30); Chloride 97 mmol/L (98-107); Glucose 93 mg/dl (70-99); Potassium 3.8 mmol/L (3.5-5.1); Sodium 135 mmol/L (135-145); Total Bilirubin 0.5 mg/dl (0.2-1.3); Total Protein 7.3 g/dl (6.3-8.2); eGFR > 60.00
== END ==
LOC: REG 12:45
PROVIDERS: ATTENDING PHYSICIAN Nurse Practitioner Primary Care; FAMILY PHYSICIAN Internal Medicine
DX: C50.011 Malignant neoplasm of nipple and areola, right female breast (principal); Z17.1 Estrogen receptor negative status [ER-]
CPT/HCPCS: 36415; 80053; 85025

== ENCOUNTER → 2024-01-20 15:21 | Outpatient (REF) | payer BC, SELFPAY ==
[2024-01-20 16:04] LABS: Erythrocyte Sed Rate 11 mm/hour (0-20)
[2024-01-20 18:03] LABS: C-Reactive Protein < 5.00 mg/L (0.0-10.00)
[2024-01-22 15:33] LABS: CRP, Highly Sensitive 0.86 mg/L
== END ==
LOC: REG 15:21
PROVIDERS: ATTENDING PHYSICIAN Ophthalmology; FAMILY PHYSICIAN Internal Medicine
DX: M31.6 Other giant cell arteritis (principal); H25.13 Age-related nuclear cataract, bilateral
CPT/HCPCS: 36415; 85652; 86140; 86141

== ENCOUNTER → 2024-02-01 11:19 | Outpatient (REF) | payer BC, SELFPAY | LOC: PAVMRI 11:19 | PROVIDERS: ATTENDING PHYSICIAN Internal Medicine | DX: G54.0 Brachial plexus disorders (principal) | CPT/HCPCS: 71552; A9575 ==

== ENCOUNTER → 2024-02-10 08:57 | Outpatient (REF) | payer BC, SELFPAY | LOC: RAD 08:57 | PROVIDERS: ATTENDING PHYSICIAN Physician Assistant; FAMILY PHYSICIAN Internal Medicine | DX: I65.22 Occlusion and stenosis of left carotid artery (principal) | CPT/HCPCS: 93880 ==

== ENCOUNTER → 2024-02-19 | Outpatient (REF) | payer BC, SELFPAY | LOC: DHSLP | PROVIDERS: ATTENDING PHYSICIAN Internal Medicine Critical Care Medicine; FAMILY PHYSICIAN Internal Medicine | DX: G47.30 Sleep apnea, unspecified (principal); R06.83 Snoring; R40.0 Somnolence | CPT/HCPCS: 95800 ==

== ENCOUNTER → 2024-08-15 09:56 | Outpatient (REF) | payer BC, SELFPAY | LOC: RAD 09:56 | PROVIDERS: ATTENDING PHYSICIAN Surgery Vascular Surgery; FAMILY PHYSICIAN Internal Medicine | DX: I65.29 Occlusion and stenosis of unspecified carotid artery (principal) | CPT/HCPCS: 93880 ==

== ENCOUNTER → 2024-09-05 12:05 | Outpatient (REF) | payer BC, SELFPAY ==
[2024-09-05 13:35] LABS: % Basophils 0.9 % (0-2); % Eosinophils 2.9 % (0-6); % Immature Granulocytes 0.2 % (0-0.5); % Lymphocytes 40.3 % (20.5-51.1); % Monocytes 7.6 % (1.7-9.3); % Neutrophils 48.1 % (42.2-75.2); Absolute Basophils 0.1 10^3/uL (0-0.2); Absolute Eosinophils 0.2 10^3/uL (0-0.7); Absolute Lymphocytes 2.3 10^3/uL (1.2-3.4); Absolute Monocytes 0.4 10^3/uL (0.1-0.6); Absolute Neutrophils 2.8 10^3/uL (1.4-6.5); Hematocrit 32.8 % (37.0-47.0); Hemoglobin 11.3 g/dL (12.0-16.0); Mean Corp Hgb Conc. 34.5 g/dL (33.0-37.0); Mean Corpuscular Hgb 30.1 pg (27.0-31.0); Mean Corpuscular Volume 87.5 fL (81.0-99.0); Mean Platelet Volume 10.3 fL (7.4-10.4); Nucleated Red Blood Cells % 0 %; Platelet Count 193 10^3/uL (130-400); Red Blood Cell Count 3.75 10^6/uL (4.20-5.40); Red Cell Dist. Width 13.5 % (11.5-14.5); White Blood Cell Count 5.8 10^3/uL (4.8-10.8)
[2024-09-05 14:01] LABS: ALT (SGPT) 15 U/L (0-35); AST (SGOT) 24 U/L (14-36); Albumin 4.6 g/dl (3.5-5.0); Alkaline Phosphatase 82 U/L (38-126); Blood Urea Nitrogen 12 mg/dl (7-17); Calcium 9.4 mg/dl (8.4-10.2); Carbon Dioxide 28 mmol/L (22-30); Chloride 102 mmol/L (98-107); Glucose 90 mg/dl (70-99); Iron 92 ug/dl (37-170); Potassium 4.4 mmol/L (3.5-5.1); Sodium 142 mmol/L (135-145); Total Bilirubin 0.3 mg/dl (0.2-1.3); Total Protein 7.3 g/dl (6.3-8.2); eGFR > 60.00
[2024-09-05 14:38] LABS: Ferritin 70.4 ng/ml (11.1-264.0)
== END ==
LOC: RAD 12:05
PROVIDERS: ATTENDING PHYSICIAN Internal Medicine Critical Care Medicine; FAMILY PHYSICIAN Internal Medicine; REFERRING PHYSICIAN Internal Medicine Hematology & Oncology
DX: R91.1 Solitary pulmonary nodule (principal); C50.011 Malignant neoplasm of nipple and areola, right female breast; Z17.1 Estrogen receptor negative status [ER-]
CPT/HCPCS: 36415; 71250; 80053; 82728; 83540; 84466; 85025

== ENCOUNTER → 2024-11-14 14:00 | Outpatient (REF) | payer BC, SELFPAY | LOC: DHSLP 14:00 | PROVIDERS: ATTENDING PHYSICIAN Internal Medicine Critical Care Medicine; FAMILY PHYSICIAN Internal Medicine | DX: G47.33 Obstructive sleep apnea (adult) (pediatric) (principal) | CPT/HCPCS: 95810 ==

== ENCOUNTER → 2025-01-23 13:25 | Outpatient (REF) | payer BC, SELFPAY ==
[2025-01-23 15:35] LABS: % Basophils 0.7 % (0-2); % Eosinophils 0.9 % (0-6); % Immature Granulocytes 0.1 % (0-0.5); % Monocytes 6.2 % (1.7-9.3); % Neutrophils 66.1 % (42.2-75.2); Absolute Basophils 0.1 10^3/uL (0-0.2); Absolute Eosinophils 0.1 10^3/uL (0-0.7); Absolute Lymphocytes 1.8 10^3/uL (1.2-3.4); Absolute Monocytes 0.4 10^3/uL (0.1-0.6); Absolute Neutrophils 4.5 10^3/uL (1.4-6.5); Hematocrit 35.7 % (37.0-47.0); Mean Corp Hgb Conc. 33.6 g/dL (33.0-37.0); Mean Corpuscular Hgb 30.8 pg (27.0-31.0); Mean Corpuscular Volume 91.8 fL (81.0-99.0); Mean Platelet Volume 11.6 fL (7.4-10.4); Nucleated Red Blood Cells % 0 %; Platelet Count 142 10^3/uL (130-400); Red Blood Cell Count 3.89 10^6/uL (4.20-5.40); Red Cell Dist. Width 13.1 % (11.5-14.5); White Blood Cell Count 6.7 10^3/uL (4.8-10.8)
[2025-01-23 15:44] LABS: ALT (SGPT) 14 U/L (0-35); AST (SGOT) 26 U/L (14-36); Albumin 4.8 g/dl (3.5-5.0); Alkaline Phosphatase 73 U/L (38-126); Blood Urea Nitrogen 15 mg/dl (7-17); Calcium 9.6 mg/dl (8.4-10.2); Carbon Dioxide 27 mmol/L (22-30); Chloride 100 mmol/L (98-107); Glucose 95 mg/dl (70-99); Potassium 4.3 mmol/L (3.5-5.1); Sodium 137 mmol/L (135-145); Total Bilirubin 0.9 mg/dl (0.2-1.3); Total Protein 7.4 g/dl (6.3-8.2); eGFR > 60.00
[2025-01-23 16:06] LABS: TSH 0.72 uIU/ml (0.47-4.68)
== END ==
LOC: REG 13:25
PROVIDERS: ATTENDING PHYSICIAN Nurse Practitioner Family; FAMILY PHYSICIAN Internal Medicine
DX: R55 Syncope and collapse (principal)
CPT/HCPCS: 36415; 80053; 84443; 85025; 93005

== ENCOUNTER → 2025-01-30 06:54 | Outpatient (REF) | payer BC, SELFPAY ==
[2025-01-30] MEDS: FLUSH (NSS) 1 FLUSH IV (09:16)
[2025-01-30] MEDS: LEXISCAN 0.4 MG IV (09:16)
== END ==
LOC: RCS 06:54
PROVIDERS: ATTENDING PHYSICIAN Nurse Practitioner Family; FAMILY PHYSICIAN Internal Medicine
DX: R55 Syncope and collapse (principal)
CPT/HCPCS: 78452; 93017; A9500; J2785

== ENCOUNTER → 2025-02-11 09:52 | Outpatient (REF) | payer BC, SELFPAY | LOC: RCS 09:52 | PROVIDERS: ATTENDING PHYSICIAN Nurse Practitioner Family; FAMILY PHYSICIAN Internal Medicine | DX: R55 Syncope and collapse (principal) | CPT/HCPCS: 93225; 93226; 93306 ==

== ENCOUNTER → 2025-03-06 10:35 | Outpatient (REF) | payer BC, SELFPAY | LOC: DHVS 10:35 | PROVIDERS: ATTENDING PHYSICIAN Surgery Vascular Surgery; FAMILY PHYSICIAN Internal Medicine | DX: I65.23 Occlusion and stenosis of bilateral carotid arteries (principal) | CPT/HCPCS: 93880 ==

== ENCOUNTER → 2025-07-26 10:54 | Outpatient (REF) | payer BC, SELFPAY ==
[2025-07-26 12:16] LABS: Hematocrit 37.2 % (37.0-47.0); Hemoglobin 12.7 g/dL (12.0-16.0); Mean Corp Hgb Conc. 34.1 g/dL (33.0-37.0); Mean Corpuscular Volume 92.8 fL (81.0-99.0); Nucleated Red Blood Cells % 0 %; Platelet Count 189 10^3/uL (130-400); Red Cell Dist. Width 13.2 % (11.5-14.5)
[2025-07-26 12:28] LABS: Urine Character Clear (Clear)
[2025-07-26 12:46] LABS: Urine Squamous Cell 16-20 /LPF (Few); Urine Urothelial Cell 0-2 /LPF (FEW)
[2025-07-26 13:12] LABS: ALT (SGPT) 13 U/L (0-35); AST (SGOT) 22 U/L (14-36); Albumin 4.9 g/dl (3.5-5.0); Alkaline Phosphatase 78 U/L (38-126); Blood Urea Nitrogen 16 mg/dl (7-17); Calcium 9.8 mg/dl (8.4-10.2); Carbon Dioxide 28 mmol/L (22-30); Chloride 105 mmol/L (98-107); Glucose 85 mg/dl (70-99); HDL Cholesterol 105 mg/dl; LDL Cholesterol, Calculated 171 mg/dl; Potassium 4.3 mmol/L (3.5-5.1); Sodium 140 mmol/L (135-145); Total Protein 8.2 g/dl (6.3-8.2); Very Low Density Lipoprotein 16 mg/dl (0-30); eGFR > 60.00
[2025-07-26 13:25] LABS: Glycohemoglobin (HgbA1c) 5.6 % (4.0-5.6)
== END ==
LOC: REG 10:54
PROVIDERS: ATTENDING PHYSICIAN Nurse Practitioner Family
DX: Z00.00 Encounter for general adult medical examination without abnormal findings (principal); F41.1 Generalized anxiety disorder; F33.1 Major depressive disorder, recurrent, moderate; R42 Dizziness and giddiness; E78.2 Mixed hyperlipidemia; J44.9 Chronic obstructive pulmonary disease, unspecified; C50.919 Malignant neoplasm of unspecified site of unspecified female breast; Z98.890 Other specified postprocedural states; R91.1 Solitary pulmonary nodule; G47.33 Obstructive sleep apnea (adult) (pediatric); K52.832 Lymphocytic colitis; Z11.1 Encounter for screening for respiratory tuberculosis
CPT/HCPCS: 36415; 80053; 80061; 81003; 81015; 83036; 84443; 85025